=== PATIENT | female | born 1940 | race Caucasian/White ===

== ENCOUNTER 2022-01-05 11:46 | Observation (INO) | payer OTHER, MEDICAID, SELFPAY ==
--- NOTE | 2022-01-05 | DI.ECHO.S_ITS ---
[facility] +---------+ : : [address] : : : : [id number] : : : : Phone: [phone]+ Echocardiogram Report + + :Name: CHASE SPARKS Study Date: 01/06/2022 Height: 65 in : :[facility] ReadingLocation: Weight: 184 lb : : Gender: Female BSA: 1.9 m2 : :: 1940 Age: 81 yrs BP: 118/51 mmHg: :Reason For Study: POST CABG, PLEURAL EDEMA/EFFUSIONS, ASSESS : :EF : :Ordering Physician: JASON, : :ELIZABETH Perez D.O Performed By: Agnes Salinas : :Referring: ELIZABETH GOMEZ D.O : + + Interpretation Summary The left ventricle is normal in size and wall thickness. The ejection fraction is estimated to be 65-70%. Left ventricular wall motion is normal. E/E' suggest increased LV filling pressures. The right ventricle is normal size. Right ventricular systolic function is moderately reduced. The right ventricular systolic pressure is estimated to be at least 49 mmHg based on an estimated right atrial pressure of 3 mm Hg. The left atrium is moderately dilated. The right atrium is mildly dilated. There is mild to moderate mitral regurgitation. There is moderate tricuspid regurgitation. There is no other significant valvular heart disease. The aortic root is normal size. Overall, LVEF and RVSP have not changed. RV systolic function has decreased. Procedure: A two-dimensional transthoracic echocardiogram with color flow and Doppler was performed. The study quality was technically adequate. Comparison is made with the echocardiogram of 05/03/2020. The patient was in atrial flutter with heart rates between 42-56 bpm during the exam. Left Ventricle: The left ventricle is normal in size and wall thickness. The ejection fraction is estimated to be 65-70%. Left ventricular wall motion is normal. Diastolic parameters suggest probable elevated filling pressures. Right Ventricle: The right ventricle is normal size. Right ventricular systolic function is moderately reduced. Atria: The left atrium is moderately dilated. The right atrium is mildly dilated. There is no Doppler evidence for an interatrial shunt. Mitral Valve: The mitral valve is normal in structure but abnormal in function. There is mild mitral annular calcification. There is mild to moderate mitral regurgitation. Aortic Valve: The aortic valve is trileaflet. The aortic valve opens well. The aortic valve is mildly calcified. There is no aortic valve stenosis. No aortic regurgitation is present. Tricuspid Valve: Tricuspid leaflets are thickened. There is moderate tricuspid regurgitation. The right ventricular systolic pressure is estimated to be at least 49 mmHg based on an estimated right atrial pressure of 3 mm Hg. Pulmonic Valve: The pulmonic valve leaflets are thin and pliable; valve motion is normal. There is mild pulmonic regurgitation. There is no other significant valvular heart disease. Great Vessels: The aortic root is normal size. The ascending aorta could not be visualized. The IVC is of normal diameter and collapses greater than 50% with a sniff. This suggests a low right atrial pressure of 3 mm Hg. Pericardium/ Pleura There is no pericardial effusion. There is no pleural effusion. MMode/2D Measurements & Calculations LVIDd: 5.0 cm LVOT diam: 1.8 cm LVIDs: 2.8 cm Ao root diam: 2.6 cm FS: 44.1 % IVSd: 0.92 cm LVPWd: 1.1 cm LV lockett. diameter/BSA (cm/m^2): 2.6 LV sys. diameter/BSA (cm/m^2): 1.5 LA A2 area: 22.5 cm2 RA long axis: 6.0 cm LA A4 area: 27.5 cm2 RA area: 21.4 cm2 LA length (vol): 6.5 cm RA vol: 65.0 ml LA vol: 80.8 ml RA : 34.0 ml/m2 LA vol index: 42.3 ml/m2 IVC diam: 1.8 cm RVD1 (basal): 3.7 cm RVD2 (mid): 2.6 cm TAPSE: 1.1 cm Doppler Measurements & Calculations Ao V2 max: 135.3 cm/sec LVOT Max Satya: 77.1 cm/sec Ao V2 mean: 102.6 cm/sec LV V1 max P.4 mmHg Ao max P.3 mmHg LV V1 VTI: 17.4 cm Ao mean P.5 mmHg JAZMIN(I,D): 1.6 cm2 Ao V2 VTI: 27.7 cm JAZMIN(V,D): 1.5 cm2 sev ratio: 0.63 JAZMIN indexed to BSA (cm^2/m^2): 0.85 MV E max satya: 117.1 cm/sec TR max satya: 338.5 cm/sec MV A max satya: 1.2 cm/sec TR max P.8 mmHg MV E/A: 96.2 PA V2 max: 116.3 cm/sec Med Peak E' Satya: 3.9 cm/sec PA V2 mean: 84.8 cm/sec E/E' med: 30.2 PA mean P.1 mmHg Lat Peak E' Satya: 7.5 cm/sec PA pr(Accel): 35.3 mmHg E/E' lat: 15.7 E/e' average: 23.0 MV dec time: 0.24 sec MVA(VTI): 1.4 cm2 MV V2 mean: 69.7 cm/sec SV(LVOT): 44.9 ml MV mean P.5 mmHg MV V2 VTI: 31.0 cm Reading Physician:[id number] PM
[2022-01-05 11:45] VITALS: BP 144/73; PULSE 86; RESP 22; TEMP 36.6; O2SAT 100; BMI 31.7
[2022-01-05 12:25] VITALS: BP 141/53; PULSE 90; RESP 16; O2SAT 99
--- NOTE | 2022-01-05 12:25 | DI.RAD.S_ITS ---
PROCEDURE: XR KNEE RT 1TO2V INDICATIONS: Fall TECHNIQUE: 2 views of the knee were acquired. COMPARISON: None. FINDINGS: Bones: There is slight irregularity of the proximal fibula seen only on lateral view. Soft tissues: No joint effusion. No suspicious soft tissue calcifications. IMPRESSION: Slight irregularity of the proximal fibula cortex seen only on lateral view. Nondisplaced fracture cannot be excluded recommend correlation point tenderness. Follow-up imaging in 7-10 days is recommended. Dictated by: Allison Moe M.D. on 01/05/2022 at 13:08 Approved by: Allison Moe M.D. on 01/05/2022 at 13:09
--- NOTE | 2022-01-05 12:27 | ED_ITS ---
HPI - Weakness <Antonio Mantilla PA-C - Last Filed: 01/05/22 18:06> General Chief complaint: Weakness Stated complaint: weakness Time Seen by Provider: 01/05/22 12:03 Source: patient and EMS Mode of arrival: EMS History of Present Illness HPI Narrative: Patient is a 81-year-old female who presents to the emergency room with complaint of weakness for about a month. States she knows to make resistant been progressively getting worse. States that the weakness has actually caused her to fall yesterday. She said when she fell she hit her right knee. Admits to having heart concerns and has been seen product specialist Dr. Bonilla reviewed and Festus that. Also states she has been in discussions with Dr. Rodgers have pacemaker inserted. States her main provider is Dr. Acuña located in [place]. Station was also in the emergency room yesterday and would be general for the same issue. Main concern today is weakness and following up with her product specialist. Admits to history of atrial fibrillation. Denies chest pain shortness of breath fever chills or associated nausea or vomiting. Also Denies any other concerns. Related Data Home Medications Medication Instructions Recorded Confirmed atorvastatin 20 mg tablet (Lipitor) 40 mg PO HS ##0 10/24/11 01/05/22 metformin 1,000 mg 24 hr 1,000 mg PO BID ##0 10/24/11 01/05/22 tablet,extended release (Glumetza) amlodipine 10 mg tablet 10 mg PO DAILY 01/05/22 01/05/22 apixaban 2.5 mg tablet (Eliquis) 2.5 mg PO BID 01/05/22 01/05/22 furosemide 20 mg tablet 20 mg PO BID 01/05/22 01/05/22 insulin aspart U-100 100 unit/mL SUBCUT 01/05/22 (3 mL) subcutaneous pen (Novolog Flexpen U-100 Insulin aspart) isosorbide mononitrate 30 mg 30 mg PO DAILY 01/05/22 01/05/22 tablet,extended release 24 hr metoprolol succinate 25 mg 25 mg PO DAILY 01/05/22 01/05/22 tablet,extended release 24 hr pregabalin 50 mg capsule (Lyrica) 50 mg PO DAILY 01/05/22 01/05/22 primidone 50 mg tablet 50 mg 01/05/22 solifenacin 5 mg tablet 5 mg PO 01/05/22 Allergies Allergy/AdvReac Type Severity Reaction Status Date / Time No Known Drug Allergies Allergy Verified 01/05/22 18:26 Review of Systems <Antonio Mantilla PA-C - Last Filed: 01/05/22 18:06> Review of Systems Narrative: R.O.S.: General: Has complained of weakness for the last month. Cardiovascular: No chest pain or palpitations Respiratory: No S.O.B. HEENT: No congestion, ear pain, rhinorrhea, sore throat or tinnitus Gastrointestinal: No nausea or vomiting : No urinary concerns Skin: No rash or associated abnormalities Musculoskeletal: No pain in muscles or joints, no limitation of range of motion, no paresthesia or numbness. ?? Neurological: Awake, alert and in not apparent distress. No Headaches, changes in vision or other related neurological concerns. 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 General: normal appearance alert, and awake. Not in acute distress. ? Head: Normocephalic, no lesions. Chest: Lungs CTAB, no rales, rhonchi or wheezes. ?? Heart: RRR, no murmurs, rubs or gallops. Eyes: PERRLA, EOM's full, conjunctivae clear. ? Neuro: Physiological, no localizing findings, CN3-12 intact. ?? Musculoskeletal: Right knee has an abrasion at the mid lower patella area. The ureter minimal swelling no erythema noted on visual inspection. ? Skin: Normal, no rashes, no lesions noted. ?? PSYCHIATRIC: The mood is good, no blunted affect. Speech is clear. Thought process is linear, thought content is appropriate. The voice is without significant inflection. Gastrointestinal: Soft; NT; ND; Pos BS with Neg. rebound tenderness. No scars or major deformities noted on Visual Inspection. Initial Vital Signs Initial Vital Signs: Vital Signs Temperature 97.8 F 01/05/22 11:45 Pulse Rate 86 01/05/22 11:45 Respiratory Rate 22 01/05/22 11:45 Blood Pressure 144/73 H 01/05/22 11:45 Pulse Oximetry 100 01/05/22 11:45 Oxygen Delivery Method 01/05/22 11:45 <Chaparrita Henderson MD - Last Filed: 01/06/22 11:43> Initial Vital Signs Initial Vital Signs: Vital Signs Temperature 97.8 F 01/05/22 11:45 Pulse Rate 86 01/05/22 11:45 Respiratory Rate 22 01/05/22 11:45 Blood Pressure 144/73 H 01/05/22 11:45 Pulse Oximetry 100 01/05/22 11:45 Oxygen Delivery Method 01/05/22 11:45 Course <Antonio Mantilla PA-C - Last Filed: 01/05/22 18:06> Orders Ordered: ED Orders 01/06/22 07:12 BMP [Basic Metabolic Panel] DAILY CBC Auto Diff [Complete Blood Count AUTO DIFF] DAILY 01/06/22 11:40 Urinalysis and Microscopic Stat 01/07/22 05:00 BMP [Basic Metabolic Panel] DAILY CBC Auto Diff [Complete Blood Count AUTO DIFF] DAILY 01/08/22 05:00 BMP [Basic Metabolic Panel] DAILY CBC Auto Diff [Complete Blood Count AUTO DIFF] DAILY Acetaminophen (Acetaminophen 325 Mg Tablet) 650 mg PO Q6HR PRN PRN Reason: Fever/Mild Pain (1-3) Last Admin: 01/05/22 20:09 Dose: 650 mg Documented By: Apixaban (Apixaban 5 Mg Tablet) 2.5 mg PO BID [facility] Last Admin: 01/06/22 09:12 Dose: 2.5 mg Documented By: JACEK Atorvastatin Calcium (Atorvastatin 20 Mg Tablet) 20 mg PO BEDTIME [facility] Last Admin: 09/25/22 20:09 Dose: 20 mg Documented By: Chlorthalidone (Chlorthalidone 25 Mg Tablet) 25 mg PO DAILY [facility] Last Admin: 01/06/22 09:12 Dose: 25 mg Documented By: Admin: 01/05/22 20:06 Dose: 25 mg Documented By: Clopidogrel Bisulfate (Clopidogrel 75 Mg Tablet) 75 mg PO DAILY [facility] Last Admin: 01/06/22 09:12 Dose: 75 mg Documented By: JACEK Dextrose (Dextrose 50 % In Water 25 Gm/50 Ml Syringe) 25 gm IV PRN PRN PRN Reason: Hypoglycemia Furosemide (Furosemide 40 Mg/4 Ml Vial) 40 mg IV DAILY [facility] Last Admin: 01/06/22 09:12 Dose: 40 mg Documented By: Admin: 01/05/22 20:06 Dose: 40 mg Documented By: Polyethylene Glycol (Polyethylene Glycol 3350 17 Gm Powd.Pack) 17 gm PO DAILY PRN PRN Reason: Constipation Pregabalin (Pregabalin 50 Mg Capsule) 50 mg PO TID [facility] Last Admin: 01/06/22 09:12 Dose: 50 mg Documented By: Admin: 01/05/22 20:10 Dose: 50 mg Documented By: Sennosides (Sennosides 8.6 Mg Tablet) 8.6 mg PO BID PRN PRN Reason: Constipation Discontinued Medications Amlodipine Besylate (Amlodipine 5 Mg Tablet) 10 mg PO DAILY [facility] Heparin Sodium (Porcine) (Heparin 5,000 Unit/Ml Vial) 5,000 unit SUBCUT BID [facility] Last Admin: 01/05/22 20:10 Dose: 5,000 unit Documented By: Isosorbide Mononitrate (Isosorbide Mononitrate Er 30 Mg Tablet) 30 mg PO DAILY [facility] Metoprolol Tartrate (Metoprolol Ir 50 Mg Tablet) 50 mg PO BID [facility] Last Admin: 01/05/22 20:09 Dose: 50 mg Documented By: Vital Signs Vital signs: Vital Signs - 8 hr 01/05/22 11:45 Temperature 97.8 F Pulse Rate 86 Respiratory Rate 22 Blood Pressure 144/73 H Pulse Oximetry 100 Oxygen Delivery Method Room Air <Chaparrita Henderson MD - Last Filed: 01/06/22 11:43> Orders Ordered: ED Orders 01/06/22 07:12 BMP [Basic Metabolic Panel] DAILY CBC Auto Diff [Complete Blood Count AUTO DIFF] DAILY 01/06/22 11:40 Urinalysis and Microscopic Stat 01/07/22 05:00 BMP [Basic Metabolic Panel] DAILY CBC Auto Diff [Complete Blood Count AUTO DIFF] DAILY 01/08/22 05:00 BMP [Basic Metabolic Panel] DAILY CBC Auto Diff [Complete Blood Count AUTO DIFF] DAILY Acetaminophen (Acetaminophen 325 Mg Tablet) 650 mg PO Q6HR PRN PRN Reason: Fever/Mild Pain (1-3) Last Admin: 01/05/22 20:09 Dose: 650 mg Documented By: Apixaban (Apixaban 5 Mg Tablet) 2.5 mg PO BID [facility] Last Admin: 01/06/22 09:12 Dose: 2.5 mg Documented By: JACEK Atorvastatin Calcium (Atorvastatin 20 Mg Tablet) 20 mg PO BEDTIME [facility] Last Admin: 01/05/22 20:09 Dose: 20 mg Documented By: Chlorthalidone (Chlorthalidone 25 Mg Tablet) 25 mg PO DAILY [facility] Last Admin: 01/06/22 09:12 Dose: 25 mg Documented By: Admin: 01/05/22 20:06 Dose: 25 mg Documented By: Clopidogrel Bisulfate (Clopidogrel 75 Mg Tablet) 75 mg PO DAILY [facility] Last Admin: 01/06/22 09:12 Dose: 75 mg Documented By: JACEK Dextrose (Dextrose 50 % In Water 25 Gm/50 Ml Syringe) 25 gm IV PRN PRN PRN Reason: Hypoglycemia Furosemide (Furosemide 40 Mg/4 Ml Vial) 40 mg IV DAILY [facility] Last Admin: 01/06/22 09:12 Dose: 40 mg Documented By: Admin: 01/05/22 20:06 Dose: 40 mg Documented By: Polyethylene Glycol (Polyethylene Glycol 3350 17 Gm Powd.Pack) 17 gm PO DAILY PRN PRN Reason: Constipation Pregabalin (Pregabalin 50 Mg Capsule) 50 mg PO TID [facility] Last Admin: 01/06/22 09:12 Dose: 50 mg Documented By: Admin: 01/05/22 20:10 Dose: 50 mg Documented By: Sennosides (Sennosides 8.6 Mg Tablet) 8.6 mg PO BID PRN PRN Reason: Constipation Discontinued Medications Amlodipine Besylate (Amlodipine 5 Mg Tablet) 10 mg PO DAILY [facility] Heparin Sodium (Porcine) (Heparin 5,000 Unit/Ml Vial) 5,000 unit SUBCUT BID [facility] Last Admin: 01/05/22 20:10 Dose: 5,000 unit Documented By: Isosorbide Mononitrate (Isosorbide Mononitrate Er 30 Mg Tablet) 30 mg PO DAILY [facility] Metoprolol Tartrate (Metoprolol Ir 50 Mg Tablet) 50 mg PO BID [facility] Last Admin: 01/05/22 20:09 Dose: 50 mg Documented By: Vital Signs Vital signs: Vital Signs - 8 hr 01/05/22 11:45 Temperature 97.8 F Pulse Rate 86 Respiratory Rate 22 Blood Pressure 144/73 H Pulse Oximetry 100 Oxygen Delivery Method Room Air MDM - Weakness <Antonio Mantilla PA-C - Last Filed: 01/05/22 18:06> Lab Data Result diagrams: 01/06/22 07:12 01/06/22 07:12 Labs: Lab Results 01/05/22 01/05/22 01/05/22 Range/Units 13:15 13:15 13:15 WBC 10.6 (4.5-11.0) X10^3/uL RBC 3.31 L (4.0-5.2) X10^6/uL Hgb 10.3 L (12.0-16.0) g/dL Hct 29.6 L (36-46) % MCV 89.4 (80-100) fL MCH 31.1 (26-34) PG MCHC 34.8 (30-36) % RDW 15.8 H (11.6-14.8) % Plt Count 235 (150-400) X10^3/uL Neut % (Auto) 79.1 H (50-75) % Lymph % (Auto) 7.8 L (25-40) % [place] % (Auto) 9.8 (3-14) % Eos % (Auto) 2.7 (2-4) % Baso % (Auto) 0.6 (0-2) % Neut # (Auto) 8400 H (3344-3788) /uL Lymph # (Auto) 800 L (9691-4950) /uL [place] # (Auto) 1000 H (0-900) /uL Eos # (Auto) 300 (0-450) /uL Baso # (Auto) 100 (0-100) /uL Sodium 138 (137-145) mmol/L Potassium 4.0 (3.4-5.1) mmol/L Chloride 102 (98-107) mmol/L Carbon Dioxide 25 (22-32) mmol/L BUN 33 H (7-17) mg/dL Creatinine 1.59 H (0.52-1.04) mg/dL Estimated GFR 33 L (>60) mL/min BUN/Creatinine Ratio 20.8 (6-22) Glucose 71 L (80-110) mg/dL Hemoglobin A1c (4.0-6.0) % Calcium 9.3 (8.4-10.2) mg/dL Magnesium (1.6-2.3) mg/dL Total Bilirubin 1.3 (0.2-1.3) mg/dL AST 22 (14-36) IU/L ALT 12 (<35) IU/L Alkaline Phosphatase 64 (38-126) U/L Total Creatine Kinase 37 (30-135) U/L CK-MB (CK-2) TNP CK-MB (CK-2) Rel Index TNP Troponin I 0.017 (0.01-0.034) ng/mL NT-Pro-B Natriuret Pep (<450) pg/mL Total Protein 7.5 (6.3-8.2) g/dL Albumin 3.8 (3.5-5.0) g/dL Globulin 3.7 (1.7-4.1) g/dL Albumin/Globulin Ratio 1.0 (1.0-2.8) TSH (0.47-4.68) uIU/mL Free T4 (0.78-2.19) ng/dL SARS-CoV-2 (PCR) (Negative) 01/05/22 01/05/22 01/05/22 Range/Units 13:15 13:15 13:45 WBC (4.5-11.0) X10^3/uL RBC (4.0-5.2) X10^6/uL Hgb (12.0-16.0) g/dL Hct (36-46) % MCV (80-100) fL MCH (26-34) PG MCHC (30-36) % RDW (11.6-14.8) % Plt Count (150-400) X10^3/uL Neut % (Auto) (50-75) % Lymph % (Auto) (25-40) % [place] % (Auto) (3-14) % Eos % (Auto) (2-4) % Baso % (Auto) (0-2) % Neut # (Auto) (5609-4291) /uL Lymph # (Auto) (4941-0846) /uL [place] # (Auto) (0-900) /uL Eos # (Auto) (0-450) /uL Baso # (Auto) (0-100) /uL Sodium (137-145) mmol/L Potassium (3.4-5.1) mmol/L Chloride (98-107) mmol/L Carbon Dioxide (22-32) mmol/L BUN (7-17) mg/dL Creatinine (0.52-1.04) mg/dL Estimated GFR (>60) mL/min BUN/Creatinine Ratio (6-22) Glucose (80-110) mg/dL Hemoglobin A1c 6.9 H (4.0-6.0) % Calcium (8.4-10.2) mg/dL Magnesium 1.9 (1.6-2.3) mg/dL Total Bilirubin (0.2-1.3) mg/dL AST (14-36) IU/L ALT (<35) IU/L Alkaline Phosphatase (38-126) U/L Total Creatine Kinase (30-135) U/L CK-MB (CK-2) CK-MB (CK-2) Rel Index Troponin I (0.01-0.034) ng/mL NT-Pro-B Natriuret Pep (<450) pg/mL Total Protein (6.3-8.2) g/dL Albumin (3.5-5.0) g/dL Globulin (1.7-4.1) g/dL Albumin/Globulin Ratio (1.0-2.8) TSH 0.07 L (0.47-4.68) uIU/mL Free T4 1.67 (0.78-2.19) ng/dL SARS-CoV-2 (PCR) (Negative) 01/05/22 01/05/22 Range/Units 13:45 16:33 WBC (4.5-11.0) X10^3/uL RBC (4.0-5.2) X10^6/uL Hgb (12.0-16.0) g/dL Hct (36-46) % MCV (80-100) fL MCH (26-34) PG MCHC (30-36) % RDW (11.6-14.8) % Plt Count (150-400) X10^3/uL Neut % (Auto) (50-75) % Lymph % (Auto) (25-40) % [place] % (Auto) (3-14) % Eos % (Auto) (2-4) % Baso % (Auto) (0-2) % Neut # (Auto) (4828-6429) /uL Lymph # (Auto) (3199-0763) /uL [place] # (Auto) (0-900) /uL Eos # (Auto) (0-450) /uL Baso # (Auto) (0-100) /uL Sodium (137-145) mmol/L Potassium (3.4-5.1) mmol/L Chloride (98-107) mmol/L Carbon Dioxide (22-32) mmol/L BUN (7-17) mg/dL Creatinine (0.52-1.04) mg/dL Estimated GFR (>60) mL/min BUN/Creatinine Ratio (6-22) Glucose (80-110) mg/dL Hemoglobin A1c (4.0-6.0) % Calcium (8.4-10.2) mg/dL Magnesium (1.6-2.3) mg/dL Total Bilirubin (0.2-1.3) mg/dL AST (14-36) IU/L ALT (<35) IU/L Alkaline Phosphatase (38-126) U/L Total Creatine Kinase (30-135) U/L CK-MB (CK-2) CK-MB (CK-2) Rel Index Troponin I (0.01-0.034) ng/mL NT-Pro-B Natriuret Pep 6760 H (<450) pg/mL Total Protein (6.3-8.2) g/dL Albumin (3.5-5.0) g/dL Globulin (1.7-4.1) g/dL Albumin/Globulin Ratio (1.0-2.8) TSH (0.47-4.68) uIU/mL Free T4 (0.78-2.19) ng/dL SARS-CoV-2 (PCR) Negative (Negative) Point of Care Testing Glucose POC 59 Imaging Data Extremity x-ray #1: Radiologist Impression: PROCEDURE:? XR KNEE RT 1TO2V ? INDICATIONS:? Fall ? TECHNIQUE:? 2 views of the knee were acquired.? ? COMPARISON:? None. ? FINDINGS:? ? Bones:? There is slight irregularity of the proximal fibula seen only on lateral view. ? Soft tissues:? No joint effusion.? No suspicious soft tissue calcifications.? ? ? IMPRESSION:? Slight irregularity of the proximal fibula cortex seen only on lateral view. ?Nondisplaced fracture cannot be excluded recommend correlation point tenderness.? Follow-up imaging in 7-10 days is recommended.? ? ? Dictated by: Allison Moe M.D. on 01/05/2022 at 13:08 ? ? Approved by: Allison Moe M.D. on 01/05/2022 at 13:09 ? CT Right knee: Radiologist Impression: PROCEDURE:? CT KNEE RIGHT WITHOUT CON ? INDICATIONS:? Please evaluate for fx of proximal Fibula ? TECHNIQUE:? Noncontrast 1-1.5 mm axial sections acquired from the mid-patella to the proximal tibia, with coronal and sagittal reformats.? ? COMPARISON1:? [facility], CR, XR CHEST 1V, 01/05/2022, 13:58.? [facility], CR, XR KNEE RT 1TO2V, 01/05/2022, 12:38. ? FINDINGS:? Image quality:? Excellent.? ? Bones:? In this patient with this given history, scrutiny is given to the proximal fibula.? No fractures are seen at this site. No fractures are seen elsewhere.? No tibial plateau fracture is seen.? There is no dislocation.? The patella demonstrates normal alignment. No suspicious lytic or blastic lesions are seen.? Age-appropriate bony degenerative changes are seen.? ? Soft tissues:? There is a minimal joint effusion.? Mild soft tissue swelling is seen anteriorly and medially. Atherosclerotic calcification is noted.? ? ? IMPRESSION:? Negative for proximal fibular fracture. ? No fractures can be seen elsewhere. ? Mild degenerative changes, considered to be normal for age. ? Mild soft tissue swelling is seen anteriorly and medially. ? Dictated by: Haile Chua M.D. on 01/05/2022 at 14:40 ? ? Approved by: Haile Cuha M.D. on 01/05/2022 at 14:42? ECG Data Interpretation: Atrial fibrillation that aligns with patient's stated history. MDM Narrative Medical decision making narrative: Patient is a 11-year-old female who presents to the emergency room today with complaint weakness for about a month. Patient also admits cardiac related concerns seeing Cardiology Dr. Wilks removed and the wrist the results of this condition. Also scheduled to have a pacemaker inserted at some point in time. EKG was done and revealed atrial fibrillation and nonspecific intraventricular block possible into an age undetermined. X-ray was ordered to rule out fracture right knee. Labs were ordered to rule out urinary or bladder infections. X-ray right knee pain impression of slight irregularity of the proximal fibular cortex seen on lateral view only. Nondisplaced fracture cannot be ruled out recommend the right knee was ordered.c orrelation for point tenderness. Patient has point tenderness in that area and CT scan the right knee was ordered to rule out fibular fracture. CT scan ruled out a fracture right knee. Urine POC was ordered but nurse days patient continues to urinate in her diaper without giving her urine to the nurse. Other labs were not concerning for cardiac concerns or infectious concerns. Plan to discharge patient with encouragement for her to follow-up with her PCP and continue to follow the product specialist. <Chaparrita Henderson MD - Last Filed: 01/06/22 11:43> Lab Data Labs: Lab Results 01/05/22 01/05/22 01/05/22 Range/Units 13:15 13:15 13:15 WBC 10.6 (4.5-11.0) X10^3/uL RBC 3.31 L (4.0-5.2) X10^6/uL Hgb 10.3 L (12.0-16.0) g/dL Hct 29.6 L (36-46) % MCV 89.4 (80-100) fL MCH 31.1 (26-34) PG MCHC 34.8 (30-36) % RDW 15.8 H (11.6-14.8) % Plt Count 235 (150-400) X10^3/uL Neut % (Auto) 79.1 H (50-75) % Lymph % (Auto) 7.8 L (25-40) % [place] % (Auto) 9.8 (3-14) % Eos % (Auto) 2.7 (2-4) % Baso % (Auto) 0.6 (0-2) % Neut # (Auto) 8400 H (0790-8125) /uL Lymph # (Auto) 800 L (0591-3129) /uL [place] # (Auto) 1000 H (0-900) /uL Eos # (Auto) 300 (0-450) /uL Baso # (Auto) 100 (0-100) /uL Sodium 138 (137-145) mmol/L Potassium 4.0 (3.4-5.1) mmol/L Chloride 102 (98-107) mmol/L Carbon Dioxide 25 (22-32) mmol/L BUN 33 H (7-17) mg/dL Creatinine 1.59 H (0.52-1.04) mg/dL Estimated GFR 33 L (>60) mL/min BUN/Creatinine Ratio 20.8 (6-22) Glucose 71 L (80-110) mg/dL Hemoglobin A1c (4.0-6.0) % Calcium 9.3 (8.4-10.2) mg/dL Magnesium (1.6-2.3) mg/dL Total Bilirubin 1.3 (0.2-1.3) mg/dL AST 22 (14-36) IU/L ALT 12 (<35) IU/L Alkaline Phosphatase 64 (38-126) U/L Total Creatine Kinase 37 (30-135) U/L CK-MB (CK-2) TNP CK-MB (CK-2) Rel Index TNP Troponin I 0.017 (0.01-0.034) ng/mL NT-Pro-B Natriuret Pep (<450) pg/mL Total Protein 7.5 (6.3-8.2) g/dL Albumin 3.8 (3.5-5.0) g/dL Globulin 3.7 (1.7-4.1) g/dL Albumin/Globulin Ratio 1.0 (1.0-2.8) TSH (0.47-4.68) uIU/mL Free T4 (0.78-2.19) ng/dL SARS-CoV-2 (PCR) (Negative) 01/05/22 01/05/22 01/05/22 Range/Units 13:15 13:15 13:45 WBC (4.5-11.0) X10^3/uL RBC (4.0-5.2) X10^6/uL Hgb (12.0-16.0) g/dL Hct (36-46) % MCV (80-100) fL MCH (26-34) PG MCHC (30-36) % RDW (11.6-14.8) % Plt Count (150-400) X10^3/uL Neut % (Auto) (50-75) % Lymph % (Auto) (25-40) % [place] % (Auto) (3-14) % Eos % (Auto) (2-4) % Baso % (Auto) (0-2) % Neut # (Auto) (0110-9808) /uL Lymph # (Auto) (5858-1672) /uL [place] # (Auto) (0-900) /uL Eos # (Auto) (0-450) /uL Baso # (Auto) (0-100) /uL Sodium (137-145) mmol/L Potassium (3.4-5.1) mmol/L Chloride (98-107) mmol/L Carbon Dioxide (22-32) mmol/L BUN (7-17) mg/dL Creatinine (0.52-1.04) mg/dL Estimated GFR (>60) mL/min BUN/Creatinine Ratio (6-22) Glucose (80-110) mg/dL Hemoglobin A1c 6.9 H (4.0-6.0) % Calcium (8.4-10.2) mg/dL Magnesium 1.9 (1.6-2.3) mg/dL Total Bilirubin (0.2-1.3) mg/dL AST (14-36) IU/L ALT (<35) IU/L Alkaline Phosphatase (38-126) U/L Total Creatine Kinase (30-135) U/L CK-MB (CK-2) CK-MB (CK-2) Rel Index Troponin I (0.01-0.034) ng/mL NT-Pro-B Natriuret Pep (<450) pg/mL Total Protein (6.3-8.2) g/dL Albumin (3.5-5.0) g/dL Globulin (1.7-4.1) g/dL Albumin/Globulin Ratio (1.0-2.8) TSH 0.07 L (0.47-4.68) uIU/mL Free T4 1.67 (0.78-2.19) ng/dL SARS-CoV-2 (PCR) (Negative) 01/05/22 01/05/22 Range/Units 13:45 16:33 WBC (4.5-11.0) X10^3/uL RBC (4.0-5.2) X10^6/uL Hgb (12.0-16.0) g/dL Hct (36-46) % MCV (80-100) fL MCH (26-34) PG MCHC (30-36) % RDW (11.6-14.8) % Plt Count (150-400) X10^3/uL Neut % (Auto) (50-75) % Lymph % (Auto) (25-40) % [place] % (Auto) (3-14) % Eos % (Auto) (2-4) % Baso % (Auto) (0-2) % Neut # (Auto) (7369-6874) /uL Lymph # (Auto) (6720-0212) /uL [place] # (Auto) (0-900) /uL Eos # (Auto) (0-450) /uL Baso # (Auto) (0-100) /uL Sodium (137-145) mmol/L Potassium (3.4-5.1) mmol/L Chloride (98-107) mmol/L Carbon Dioxide (22-32) mmol/L BUN (7-17) mg/dL Creatinine (0.52-1.04) mg/dL Estimated GFR (>60) mL/min BUN/Creatinine Ratio (6-22) Glucose (80-110) mg/dL Hemoglobin A1c (4.0-6.0) % Calcium (8.4-10.2) mg/dL Magnesium (1.6-2.3) mg/dL Total Bilirubin (0.2-1.3) mg/dL AST (14-36) IU/L ALT (<35) IU/L Alkaline Phosphatase (38-126) U/L Total Creatine Kinase (30-135) U/L CK-MB (CK-2) CK-MB (CK-2) Rel Index Troponin I (0.01-0.034) ng/mL NT-Pro-B Natriuret Pep 6760 H (<450) pg/mL Total Protein (6.3-8.2) g/dL Albumin (3.5-5.0) g/dL Globulin (1.7-4.1) g/dL Albumin/Globulin Ratio (1.0-2.8) TSH (0.47-4.68) uIU/mL Free T4 (0.78-2.19) ng/dL SARS-CoV-2 (PCR) Negative (Negative) Point of Care Testing Glucose POC 59 Discharge Plan Departure Patient Disposition: Home Clinical Impression: Weakness, Atrial fibrillation <Chaparrita Henderson MD - Last Filed: 01/06/22 11:43> Cosign ED Attending Cosignature Attestation: I was immediately available in the department for consultation throughout this patient's visit. I agree with documentation as above. Chaparrita Henderson MD
--- NOTE | 2022-01-05 13:24 | DI.RAD.S_ITS ---
PROCEDURE: XR CHEST 1V INDICATIONS: Afib and weakness TECHNIQUE: One view of the chest was acquired. COMPARISON: [facility], CR, XR CHEST 1 VIEW, 10/24/2021, 11:53. [facility], CR, XR CHEST 2 VIEWS, 05/04/2020, 13:27. [facility], CR, CHEST 1 VIEW, 10/24/2011, 19:10. FINDINGS: Surgical changes and devices: Post CABG changes are seen. Postoperative change of the right humeral head is also seen. Lungs and pleura: Mild blunting of the left costophrenic angle can be seen. No pneumothorax is seen. No fransisco, focal infiltrates are seen. Minimal interstitial prominence can be seen Mediastinum: The cardiac contours are mildly to moderately large. The aorta demonstrates calcification and tortuosity. Bones and chest wall: No suspicious bony lesions. Age-appropriate bony degenerative changes are seen. Overlying soft tissues appear unremarkable. IMPRESSION: Cardiomegaly with minimal interstitial prominence and a small left-sided pleural effusion. Please correlate with patient presentation, physical examination findings, and laboratory values for congestive heart failure. Postoperative and degenerative changes are seen. Dictated by: Haile Chua M.D. on 01/05/2022 at 13:32 Approved by: Haile Chua M.D. on 01/05/2022 at 13:33
[2022-01-05 13:39] LABS: Add Manual Diff / Slide Review NO; Basophils Absolute Auto 100 /uL (0-100); Basophils Percent Auto 0.6 % (0-2); Eosinophils Absolute Auto 300 /uL (0-450); Eosinophils Percent Auto 2.7 % (2-4); Hematocrit 29.6 % (36-46); Hemoglobin 10.3 g/dL (12.0-16.0); Lymphocytes Absolute Auto 800 /uL (1100-4500); Lymphocytes Percent Auto 7.8 % (25-40); Mean Corpuscular HGB Conc 34.8 % (30-36); Mean Corpuscular Hemoglobin 31.1 PG (26-34); Mean Corpuscular Volume 89.4 fL (80-100); Monocytes Absolute Auto 1000 /uL (0-900); Monocytes Percent Auto 9.8 % (3-14); Neutrophils Absolute Auto 8400 /uL (1500-7000); Neutrophils Percent Auto 79.1 % (50-75); Platelet Count 235 X10^3/uL (150-400); Red Blood Cell Count 3.31 X10^6/uL (4.0-5.2); Red Cell Distribution Width 15.8 % (11.6-14.8); White Blood Cell Count 10.6 X10^3/uL (4.5-11.0)
[2022-01-05 13:44] LABS: Alanine Aminotransferase 12 IU/L (<35); Albumin 3.8 g/dL (3.5-5.0); Alkaline Phosphatase 64 U/L (38-126); Aspartate Aminotransferase 22 IU/L (14-36); BUN Creatinine Ratio 20.8 (6-22); Bilirubin Total 1.3 mg/dL (0.2-1.3); Blood Urea Nitrogen 33 mg/dL (7-17); Calcium 9.3 mg/dL (8.4-10.2); Carbon Dioxide 25 mmol/L (22-32); Chloride 102 mmol/L (98-107); Estimated Glomerular Filt Rate 33 mL/min (>60); Globulin 3.7 g/dL (1.7-4.1); Glucose 71 mg/dL (80-110); Sodium 138 mmol/L (137-145); Total Protein 7.5 g/dL (6.3-8.2)
[2022-01-05 13:45] LABS: HEMOLYSIS 62 (0-50)
[2022-01-05 13:56] LABS: Creatine Kinase 37 U/L (30-135)
--- NOTE | 2022-01-05 14:08 | PC.NURSE ---
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 concerned called ems, jacobo was on divert. pt states she does have an appt to see excellence consultant for PM placement.
[2022-01-05 14:09] LABS: Troponin I 0.017 ng/mL (0.01-0.034)
--- NOTE | 2022-01-05 14:29 | DI.CT.S_ITS ---
PROCEDURE: CT KNEE RIGHT WITHOUT CON INDICATIONS: Please evaluate for fx of proximal Fibula TECHNIQUE: Noncontrast 1-1.5 mm axial sections acquired from the mid-patella to the proximal tibia, with coronal and sagittal reformats. COMPARISON1: [facility], CR, XR CHEST 1V, 01/05/2022, 13:58. [facility], CR, XR KNEE RT 1TO2V, 01/05/2022, 12:38. FINDINGS: Image quality: Excellent. Bones: In this patient with this given history, scrutiny is given to the proximal fibula. No fractures are seen at this site. No fractures are seen elsewhere. No tibial plateau fracture is seen. There is no dislocation. The patella demonstrates normal alignment. No suspicious lytic or blastic lesions are seen. Age-appropriate bony degenerative changes are seen. Soft tissues: There is a minimal joint effusion. Mild soft tissue swelling is seen anteriorly and medially. Atherosclerotic calcification is noted. IMPRESSION: Negative for proximal fibular fracture. No fractures can be seen elsewhere. Mild degenerative changes, considered to be normal for age. Mild soft tissue swelling is seen anteriorly and medially. Dictated by: Haile Chua M.D. on 01/05/2022 at 14:40 Approved by: aHile Chua M.D. on 01/05/2022 at 14:42
[2022-01-05 16:00] VITALS: BP 136/58; PULSE 78; RESP 18; O2SAT 100
--- NOTE | 2022-01-05 16:26 | ED_ITS ---
HPI - Weakness General Chief complaint: Weakness Stated complaint: weakness Time Seen by Provider: 01/05/22 12:03 Source: patient and EMS Mode of arrival: EMS Related Data Home Medications Medication Instructions Recorded Confirmed atorvastatin 20 mg tablet (Lipitor) 20 mg PO HS ##0 10/24/11 chlorthalidone 25 mg tablet 25 mg PO QDAY ##0 10/24/11 clopidogrel 75 mg tablet (Plavix) 75 mg PO QDAY ##0 10/24/11 glipizide 10 mg tablet 10 mg PO BID ##0 10/24/11 metformin 1,000 mg 24 hr 1,000 mg PO BID ##0 10/24/11 tablet,extended release (Glumetza) metoprolol tartrate 50 mg tablet 50 mg PO BID ##0 10/24/11 pregabalin 50 mg capsule (Lyrica) 50 mg PO TID ##1 10/24/11 Patient History Surgical History (Updated 08/11/17 @ 06:00 by Conversion Provider) Status post surgery (09/19/13) Substance Use Type: does not use Exam Initial Vital Signs Initial Vital Signs: Vital Signs Temperature 97.8 F 01/05/22 11:45 Pulse Rate 86 01/05/22 11:45 Respiratory Rate 22 01/05/22 11:45 Blood Pressure 144/73 H 01/05/22 11:45 Pulse Oximetry 100 01/05/22 11:45 Oxygen Delivery Method 01/05/22 11:45 Course Orders Ordered: ED Orders 01/05/22 12:25 XR knee RT 1to2V Stat EKG-12 Lead Stat 01/05/22 13:15 CBC Auto Diff [Complete Blood Count AUTO DIFF] Stat CMP [Comprehensive Metabolic Panel] Stat cardiac panel [Troponin & CK Cardiac Panel] Stat 01/05/22 13:24 XR chest 1V Stat 01/05/22 14:29 Ct Knee right without con Stat 01/05/22 16:33 COVID19 -Nasal RAPID/Pre-Proc Stat 01/05/22 18:01 Urinalysis and Microscopic Stat Vital Signs Vital signs: Vital Signs - 8 hr 01/05/22 11:45 Temperature 97.8 F Pulse Rate 86 Respiratory Rate 22 Blood Pressure 144/73 H Pulse Oximetry 100 Oxygen Delivery Method Room Air MDM - Weakness Lab Data Result diagrams: 01/05/22 13:15 01/05/22 13:15 Labs: Lab Results 01/05/22 01/05/22 01/05/22 Range/Units 13:15 13:15 13:15 WBC 10.6 (4.5-11.0) X10^3/uL RBC 3.31 L (4.0-5.2) X10^6/uL Hgb 10.3 L (12.0-16.0) g/dL Hct 29.6 L (36-46) % MCV 89.4 (80-100) fL MCH 31.1 (26-34) PG MCHC 34.8 (30-36) % RDW 15.8 H (11.6-14.8) % Plt Count 235 (150-400) X10^3/uL Neut % (Auto) 79.1 H (50-75) % Lymph % (Auto) 7.8 L (25-40) % [place] % (Auto) 9.8 (3-14) % Eos % (Auto) 2.7 (2-4) % Baso % (Auto) 0.6 (0-2) % Neut # (Auto) 8400 H (8584-9556) /uL Lymph # (Auto) 800 L (6034-2034) /uL [place] # (Auto) 1000 H (0-900) /uL Eos # (Auto) 300 (0-450) /uL Baso # (Auto) 100 (0-100) /uL Sodium 138 (137-145) mmol/L Potassium 4.0 (3.4-5.1) mmol/L Chloride 102 (98-107) mmol/L Carbon Dioxide 25 (22-32) mmol/L BUN 33 H (7-17) mg/dL Creatinine 1.59 H (0.52-1.04) mg/dL Estimated GFR 33 L (>60) mL/min BUN/Creatinine Ratio 20.8 (6-22) Glucose 71 L (80-110) mg/dL Calcium 9.3 (8.4-10.2) mg/dL Total Bilirubin 1.3 (0.2-1.3) mg/dL AST 22 (14-36) IU/L ALT 12 (<35) IU/L Alkaline Phosphatase 64 (38-126) U/L Total Creatine Kinase 37 (30-135) U/L CK-MB (CK-2) TNP CK-MB (CK-2) Rel Index TNP Troponin I 0.017 (0.01-0.034) ng/mL Total Protein 7.5 (6.3-8.2) g/dL Albumin 3.8 (3.5-5.0) g/dL Globulin 3.7 (1.7-4.1) g/dL Albumin/Globulin Ratio 1.0 (1.0-2.8) SARS-CoV-2 (PCR) (Negative) 01/05/22 Range/Units 16:33 WBC (4.5-11.0) X10^3/uL RBC (4.0-5.2) X10^6/uL Hgb (12.0-16.0) g/dL Hct (36-46) % MCV (80-100) fL MCH (26-34) PG MCHC (30-36) % RDW (11.6-14.8) % Plt Count (150-400) X10^3/uL Neut % (Auto) (50-75) % Lymph % (Auto) (25-40) % [place] % (Auto) (3-14) % Eos % (Auto) (2-4) % Baso % (Auto) (0-2) % Neut # (Auto) (4020-3910) /uL Lymph # (Auto) (6015-1961) /uL [place] # (Auto) (0-900) /uL Eos # (Auto) (0-450) /uL Baso # (Auto) (0-100) /uL Sodium (137-145) mmol/L Potassium (3.4-5.1) mmol/L Chloride (98-107) mmol/L Carbon Dioxide (22-32) mmol/L BUN (7-17) mg/dL Creatinine (0.52-1.04) mg/dL Estimated GFR (>60) mL/min BUN/Creatinine Ratio (6-22) Glucose (80-110) mg/dL Calcium (8.4-10.2) mg/dL Total Bilirubin (0.2-1.3) mg/dL AST (14-36) IU/L ALT (<35) IU/L Alkaline Phosphatase (38-126) U/L Total Creatine Kinase (30-135) U/L CK-MB (CK-2) CK-MB (CK-2) Rel Index Troponin I (0.01-0.034) ng/mL Total Protein (6.3-8.2) g/dL Albumin (3.5-5.0) g/dL Globulin (1.7-4.1) g/dL Albumin/Globulin Ratio (1.0-2.8) SARS-CoV-2 (PCR) Negative (Negative) Discharge Plan Departure Patient Disposition: Home Clinical Impression: Weakness, Atrial fibrillation Instructions: DI for Atrial Fibrillation, DI for Muscle Weakness Prescriptions: No Action metformin [Glumetza] 1,000 MG tablet,ER iris.retention 24 hr 1,000 mg PO BID Qty: 0 clopidogrel [Plavix] 75 MG tablet 75 mg PO QDAY Qty: 0 pregabalin [Lyrica] 50 MG capsule 50 mg PO TID Qty: 1 glipizide 10 MG tablet 10 mg PO BID Qty: 0 metoprolol tartrate 50 MG tablet 50 mg PO BID Qty: 0 atorvastatin [Lipitor] 20 MG tablet 20 mg PO HS Qty: 0 chlorthalidone 25 MG tablet 25 mg PO QDAY Qty: 0 Referrals: Stephie Aguilar PA-C [Family Provider] -
[2022-01-05 17:04] LABS: COVID19 -Nasal RAPID Negative (Negative)
[2022-01-05 18:39] LABS: Magnesium 1.9 mg/dL (1.6-2.3)
[2022-01-05 18:41] LABS: Hemoglobin A1C% w Est Avg Glu 6.9 % (4.0-6.0)
[2022-01-05 18:51] LABS: NT-proBNP (BNP-Adult 18+) 6760 pg/mL (<450)
--- NOTE | 2022-01-05 19:01 | PC.NURSE ---
Wound pictures right buttock - Sacral dsg applied xx right knee left knee
[2022-01-05 19:12] LABS: TSH w/ Reflex to FT4 0.07 uIU/mL (0.47-4.68)
[2022-01-05 19:42] LABS: Free T4, Direct Thyroxine 1.67 ng/dL (0.78-2.19)
[2022-01-05] MEDS: FUROSEMIDE 40 MG/4 ML VIAL IV (20:06)
[2022-01-05] MEDS: CHLORTHALIDONE 25 MG TABLET PO (20:06)
[2022-01-05] MEDS: ACETAMINOPHEN 325 MG TABLET 650 MG PO (20:09)
[2022-01-05] MEDS: ATORVASTATIN 20 MG TABLET PO (20:09)
[2022-01-05] MEDS: METOPROLOL IR 50 MG TABLET PO (20:09)
[2022-01-05] MEDS: HEPARIN 5,000 UNIT/ML VIAL 5000 UNIT SUBCUT (20:10)
[2022-01-05] MEDS: PREGABALIN 50 MG CAPSULE PO (20:10)
[2022-01-05 21:37] VITALS: BP 118/51; PULSE 46; RESP 16; O2SAT 97
[2022-01-05 22:05] VITALS: PULSE 54; RESP 16; O2SAT 99
[2022-01-06] VITALS (8 sets, daily range): BP systolic 122–158; BP diastolic 42–65; PULSE 44–74; RESP 14–22; TEMP 36.1–36.8; O2SAT 96–98; BMI 31.7
--- NOTE | 2022-01-06 04:18 | PM.HP.1 ---
History of Present Illness History of Present Illness Date Patient Seen: 01/05/22 Time Patient Seen: 21:00 Chief complaint: weakness Narrative: Darlin Ward is a 81-year-old bed bound female with a medical history of diabetes, atrial fibrillation, chronic bradycardia, hypothyroidism with a history of partial thyroidectomy, CABG x5, heart stents on eliquis, whom is on home 02 for unknown reason, who presented to the emergency room with complaint of weakness for about a month progressively getting worse.? The patient reports repeated falls, the last being yesterday.? GLF impacting her right knee.? The patient denies any head injury or loss of consciousness from these falls. Admits to having heart concerns and has been seen electric stop installer Dr. Bonilla reviewed and has been in discussions with Dr. Rodgers to have a pacemaker inserted.? States her main provider is Dr. Acuña located in [place].? Patient is a poor historian and information may not be accurate. Patient denies chest pain shortness of breath, abd pain, fever, body aches, chills, nausea, vomiting, constipation, diarrhea, urinary issues, cough or upper respiratory symptoms, or recent illness, no recent changes in medication.? Also Denies any other concerns. Patient was hemodynamically stable upon admit temp 97.8?, BP 136/58, HR 78, R 18, O2 saturation 100% on 4 L nasal cannula, patient is on oxygen at home. Patient demonstrates mild anemia though we have no labs for comparison. 10.3/29.6, WBC normal noted mild left shift neutrophils 8400 mono 1000. Patient also demonstrates a versus possible CKD which is like BUN 33, creatinine 1.59, glucose of 71, GFR 33, A1c 6.9. BNP 6060, initial troponin 0.017, TSH is low 0.07. Chest x-ray demonstrated cardiomegaly a with minimal interstitial prominence and a small left-sided pleural effusion. Patient's right knee CT demonstrated mi soft tissue swelling seen anteriorly and medially. EKG demonstrated atrial fibrillation with a rate of 81 with nonspecific intraventricular block most likely right bundle-branch block which is consistent with previous EKG in chart which I personally reviewed. Patient admitted for weakness resulting in a ground level fall, right knee pain, bradycardia in AFib. Patient History Medical History (Updated 01/06/22 @ 04:53 by DENYS Wakefield) Bradycardia Chronic anticoagulation Hypothyroidism associated with surgical procedure Insulin dependent diabetes mellitus On home O2 Surgical History (Updated 01/06/22 @ 04:41 by DENYS Wakefield) History of coronary artery bypass graft x 6 History of partial thyroidectomy Status post surgery (09/19/13) Family & Social History Family History Mother Congestive heart failure Father Cancer Social History: household members none Prior Living Arrangements Apartment/Condo Safety & Behavioral: Feels Safe in Current Yes Environment Been Physically Hurt or No Threatened By a Person Tobacco & Substance use: Smoking Status Never smoker alcohol intake never Substance Use Type does not use Meds Home Medications and Allergies Home Medications Medication Instructions Recorded Confirmed Type atorvastatin 20 mg tablet (Lipitor) 40 mg PO HS ##0 10/24/11 01/05/22 History metformin 1,000 mg 24 hr 1,000 mg PO BID ##0 10/24/11 01/05/22 History tablet,extended release (Glumetza) amlodipine 10 mg tablet 10 mg PO DAILY 01/05/22 01/05/22 History apixaban 2.5 mg tablet (Eliquis) 2.5 mg PO BID 01/05/22 01/05/22 History furosemide 20 mg tablet 20 mg PO BID 01/05/22 01/05/22 History insulin aspart U-100 100 unit/mL SUBCUT 01/05/22 History (3 mL) subcutaneous pen (Novolog Flexpen U-100 Insulin aspart) isosorbide mononitrate 30 mg 30 mg PO DAILY 01/05/22 01/05/22 History tablet,extended release 24 hr metoprolol succinate 25 mg 25 mg PO DAILY 01/05/22 01/05/22 History tablet,extended release 24 hr pregabalin 50 mg capsule (Lyrica) 50 mg PO DAILY 01/05/22 01/05/22 History primidone 50 mg tablet 50 mg 01/05/22 History solifenacin 5 mg tablet 5 mg PO 01/05/22 History Allergies Allergy/AdvReac Type Severity Reaction Status Date / Time No Known Drug Allergies Allergy Verified 01/05/22 18:26 Review of Systems Review of Systems Narrative: All 12 point systems reviewed with the patient and are negative except otherwise documented. Exam Vital Signs (past 8 hours): - 01/05/22 21:37 01/05/22 22:05 01/06/22 00:45 Temperature 96.9 F L Pulse Rate 46 L 54 L 52 L Respiratory Rate 16 16 14 Blood Pressure 118/51 L 137/60 Pulse Oximetry 97 99 96 Oxygen Delivery Method Nasal Cannula Oxygen Flow Rate 2 2 2 Fraction of Inspired Oxygen 28 Fraction of Inspired Oxygen 28 SaO2/FiO2 Ratio 353 Oxygen Delivery Method Nasal Cannula Oxygen Flow Rate 2 Narrative Exam Narrative: General: Patient is a elderly pleasant mildly confused female in no distress at this time. HEENT: Normocephalic, atraumatic, extraocular muscles intact, oral pharynx is clear and mucous membranes are moist. Neck is supple and symmetric, trachea is midline, no adenopathy, no thyroid enlargement, nontender, no masses palpated. Negative for JVD Chest: Normal AP diameter and contour without kyphoscoliosis, no nasal flaring, retractions, tachypneic, mildly labored breathing. Lungs: Auscultation of all lung brantley are clear without adventitious sounds, wheezes, rhonchi, or rales. Cardio: Bradycardic irregular rate and rhythm without murmur, rubs, or gallops, no carotid bruit, no cardiac pulsations present. Abdomen: Soft nontender, negative for organomegaly, or masses. Bowel sounds are present in all 4 quadrants without guarding or rebound, no CVA tenderness. Musculoskeletal: Right knee has an abrasion at the mid lower patella area. The ureter minimal swelling no erythema noted on visual inspection. no deformity, crepitus, effusions, cyanosis, or clubbing present. Positive bilateral +2 lower extremity nonpitting edema. Full range of motion intact radial and pedal pulses are normal. Skin: Warm dry and intact. see right knee above. Neuro: Alert and orientated x3, sensation to touch intact, no gross deficits noted of cranial nerves. Psych: Patient has a well-kept appearance, appropriate affect, mildly confused, thought context mental status and judgment are appropriate for age 81. Objective Labs Result Diagrams: 01/05/22 13:15 01/05/22 13:15 Labs: Laboratory Results - last 24 hr 01/05/22 01/05/22 01/05/22 13:15 13:15 13:15 WBC 10.6 RBC 3.31 L Hgb 10.3 L Hct 29.6 L MCV 89.4 MCH 31.1 MCHC 34.8 RDW 15.8 H Plt Count 235 Neut % (Auto) 79.1 H Lymph % (Auto) 7.8 L [place] % (Auto) 9.8 Eos % (Auto) 2.7 Baso % (Auto) 0.6 Neut # (Auto) 8400 H Lymph # (Auto) 800 L [place] # (Auto) 1000 H Eos # (Auto) 300 Baso # (Auto) 100 Sodium 138 Potassium 4.0 Chloride 102 Carbon Dioxide 25 BUN 33 H Creatinine 1.59 H Estimated GFR 33 L BUN/Creatinine Ratio 20.8 Glucose 71 L Hemoglobin A1c Calcium 9.3 Magnesium Total Bilirubin 1.3 AST 22 ALT 12 Alkaline Phosphatase 64 Total Creatine Kinase 37 CK-MB (CK-2) TNP CK-MB (CK-2) Rel Index TNP Troponin I 0.017 NT-Pro-B Natriuret Pep Total Protein 7.5 Albumin 3.8 Globulin 3.7 Albumin/Globulin Ratio 1.0 TSH Free T4 SARS-CoV-2 (PCR) 01/05/22 01/05/22 01/05/22 13:15 13:15 13:45 WBC RBC Hgb Hct MCV MCH MCHC RDW Plt Count Neut % (Auto) Lymph % (Auto) [place] % (Auto) Eos % (Auto) Baso % (Auto) Neut # (Auto) Lymph # (Auto) [place] # (Auto) Eos # (Auto) Baso # (Auto) Sodium Potassium Chloride Carbon Dioxide BUN Creatinine Estimated GFR BUN/Creatinine Ratio Glucose Hemoglobin A1c 6.9 H Calcium Magnesium 1.9 Total Bilirubin AST ALT Alkaline Phosphatase Total Creatine Kinase CK-MB (CK-2) CK-MB (CK-2) Rel Index Troponin I NT-Pro-B Natriuret Pep Total Protein Albumin Globulin Albumin/Globulin Ratio TSH 0.07 L Free T4 1.67 SARS-CoV-2 (PCR) 01/05/22 01/05/22 13:45 16:33 WBC RBC Hgb Hct MCV MCH MCHC RDW Plt Count Neut % (Auto) Lymph % (Auto) [place] % (Auto) Eos % (Auto) Baso % (Auto) Neut # (Auto) Lymph # (Auto) [place] # (Auto) Eos # (Auto) Baso # (Auto) Sodium Potassium Chloride Carbon Dioxide BUN Creatinine Estimated GFR BUN/Creatinine Ratio Glucose Hemoglobin A1c Calcium Magnesium Total Bilirubin AST ALT Alkaline Phosphatase Total Creatine Kinase CK-MB (CK-2) CK-MB (CK-2) Rel Index Troponin I NT-Pro-B Natriuret Pep 6760 H Total Protein Albumin Globulin Albumin/Globulin Ratio TSH Free T4 SARS-CoV-2 (PCR) Negative Assessment & Plan Assessment & Plan narrative: Darlin Ward is a 81-year-old female with a medical history of diabetes, atrial fibrillation, chronic bradycardia, hypothyroidism with a history of partial thyroidectomy, CABG x5, heart stents on eliquis, whom is on home 02 for unknown reason, who presented to the emergency room with complaint of weakness for about a month progressively getting worse, resulting in multiple ground level falls causing right knee pain, though pt is reported to be bed bound, she also presents with atrial fibrillation with bradycardic rates between 39-50. 1. Weakness(deconditioning) chronic, resulting in ground level fall, right knee pain, acute, present on admission -patient is reported to be bed bound-unknown duration? -Patient needs SNF placement -right knee CT demonstrated only mild soft tissues swelling seen anteriorly and medially. -PT/OT evaluation -gait stability evaluation -Patient likely needs -the deconditioning weakness I suspect is chronic, exacerbated the patient's bradycardic atrial fibrillation, inactivity, and possible hypoglycemia. 2. Atrial fibrillation, on chronic anticoagulation, intermittent bradycardia, acute on chronic, present on admission -ED consulted Cardiology -will likely need cardiology consult regarding bradycardia if we are unable to stabalize- transfer for pacemaker placement. -unclear who patient's electric stop installer is-S have requested day shift RN to verify medications dosages electric stop installer and request records to provide to Dr. Mejia tomorrow. -echo ordered for tomorrow -patient has bilateral lower extremity edema, and BNP of 6760-likely has congestive heart failure- Echo for confirmation. Lasix 40mg IV BID -monitor on tele -ortho stats Q4 Hrs while awake -Hold metoprolol, amolodipine, isosorbide mononitrate- due to Bradycardia. -continue Eliquis 3. Hypothyroidism secondary to partial thyroidectomy, acute on chronic, present on admission -TSH 0.07 -ordered thyroid ultrasound -unable to verify medication or dose- due to pt poor historian, or if she is taking any medication at this time. -Day RN to verify 4. Diabetes type 2, insulin dependent, chronic, present on admission -patient presented with a blood sugar of 71, and A1c of 6.9 -will hold diabetic medications-an A1c of 7-7.5 is appropriate in a 81-year-old she likely no longer needs to continue any diabetic medications, but should follow-up with PCP for repeat A1c in 3 months for further evaluation. -admitted under diabetic protocols and will monitor blood sugars a.c. HS 5. BILLY, verses CKD, acute, present on admission -suspect that this is actually just CKD, but no labs for comparison -BUN 33, creatinine 1.59, glucose 71, GFR 33 -will monitor renal function. -no signs of infectious process 6. Anemia, mild, acute, present on admission -again suspect this is possible anemia -RBC 3.31, H&H 10.3/29.6 -will monitor H&H, and for signs and symptoms of bleeding 7. Cognitive impairment, acute versus chronic, present on admission -does not appear to be encephalopathic, suspect this is normal appropriate memory loss with age. -monitor for acute cognitive changes Code status:DNR Surrogate decision maker: Monet Perdomo Sister JUSTO PCR:Negative DVT/VTE prophylaxis:Pt on Eliquis & SCD's Disposition: Patient admitted for observation for echo, thyroid ultrasound, PT/OT/SNF evaluation, expected length of stay less than 2 midnights I have utilized all available immediate resources to obtain, update, or review the patient's current medications. Patient is a poor historian and unable to clarify medications or medical history, RN will verify tomorrow. I confirmed that the patient's advanced care plan is present, Code status is documented and/or surrogate decision maker is listed in the patient's medical record. Time Spent With Patient Critical Care time: I spent a total of [] minutes of critical care time on this patient's care today; this time is exclusive of procedural time. Scores GCS Debbie coma scale eye opening: Spontaneous Debbie coma scale verbal response: Confused Debbie coma scale motor response: Obey commands [place] coma scale total score: 14 Quality VTE Deep Vein Thrombosis/Pulmonary Embolism Present on Admission: No
[2022-01-06 07:42] LABS: Add Manual Diff / Slide Review NO; Basophils Absolute Auto 0 /uL (0-100); Basophils Percent Auto 0.3 % (0-2); Eosinophils Absolute Auto 200 /uL (0-450); Eosinophils Percent Auto 1.3 % (2-4); Hematocrit 29.9 % (36-46); Hemoglobin 10.3 g/dL (12.0-16.0); Lymphocytes Absolute Auto 400 /uL (1100-4500); Lymphocytes Percent Auto 3.5 % (25-40); Mean Corpuscular HGB Conc 34.5 % (30-36); Mean Corpuscular Hemoglobin 30.5 PG (26-34); Mean Corpuscular Volume 88.5 fL (80-100); Monocytes Absolute Auto 1000 /uL (0-900); Monocytes Percent Auto 8.2 % (3-14); Neutrophils Absolute Auto 10600 /uL (1500-7000); Neutrophils Percent Auto 86.7 % (50-75); Platelet Count 258 X10^3/uL (150-400); Red Blood Cell Count 3.38 X10^6/uL (4.0-5.2); Red Cell Distribution Width 15.6 % (11.6-14.8); White Blood Cell Count 12.3 X10^3/uL (4.5-11.0)
[2022-01-06 07:58] LABS: BUN Creatinine Ratio 16.6 (6-22); Blood Urea Nitrogen 27 mg/dL (7-17); Calcium 9.3 mg/dL (8.4-10.2); Carbon Dioxide 28 mmol/L (22-32); Chloride 99 mmol/L (98-107); Estimated Glomerular Filt Rate 32 mL/min (>60); Glucose 125 mg/dL (80-110); HEMOLYSIS < 15 (0-50); Potassium 3.6 mmol/L (3.4-5.1); Sodium 138 mmol/L (137-145)
--- NOTE | 2022-01-06 09:07 | DIET.CONS2 ---
Dietary Inpatient Consultation Note Admission Date: 01/05/2022 18:09 RD consulted for MNA 10, pt at risk for malnutrition. RD attempted bedside interview with pt. Pt sitting up in bed chewing on breakfast but chicken sausage and oranges both appear to be chewed on and spit out, pt states she is having difficult time eating them but also states breakfast tastes good. 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 RD spoke c Care Management to collaborate on ways to glean more about pts home status. RD to f/u with [facility] to identify physical signs of malnutrition. Diet: 01/05/22 Dinner Heart Healthy Diet Diet Modifications: Electronically Signed by: Macey Noriega 01/06/22 09:07 Clinical Dietitian [address] [id number]
[2022-01-06] MEDS: APIXABAN 5 MG TABLET 2.5 MG PO ×2 (09:12→21:57)
[2022-01-06] MEDS: CLOPIDOGREL 75 MG TABLET PO (09:12)
[2022-01-06] MEDS: CHLORTHALIDONE 25 MG TABLET PO (09:12)
[2022-01-06] MEDS: PREGABALIN 50 MG CAPSULE PO ×3 (09:12→21:57)
[2022-01-06] MEDS: FUROSEMIDE 40 MG/4 ML VIAL IV (09:12)
--- NOTE | 2022-01-06 10:22 | PC.RNWOUND ---
Patient resting in bed, turns to left side with assist. Sacral dressing gently pulled back to reveal a 2 x 1.5 x 0.05cm Stage 2 pressure injury to Right buttock. This is a partial-thickness wound with sacral dressing covering for protection. Patient is incontinent with purewick in use, turn q2 schedule. Patient is turned to left side using 30 degree tilt to offload right buttock, reports comfort.
--- NOTE | 2022-01-06 11:28 | PT.IIE ---
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 Mobility and Gait Pt uses a 4WW for limited household mobility and for trips to the doctor's office. She states she has been falling frequently. Activities of Daily Living and IADL's Pt has a ALEENA caregiver 4-5 hours per day during the week and one hour per day on weekends. Caregiver is assisting with bathing tasks. Per OT, pt states she was driving herself until recently . Prior Functional Level (Other details) Pt recently had a monitoring tech from [facility]. She is persistently bradycardic and is being considered for a pacemaker. Social History Household Members none Living Arrangements Apartment/Condo Number of Stairs To Enter/Railing? Pt lives in a third floor apartment with elevator access . Home Environment Standard Height Toilet,Tub/ Shower Home Equipment Bedside Commode,Tub Transfer Bench,Hand Held Shower,Lift Recliner,Grab Bars Near Toilet ,Grab Bars In Shower Additional Social History Comment Pt lives alone in [place]. She has a sister who lives in [place] and provides occasional assist. Pt's caregiver has been sick recently and unable to provide regular hours. M2 PT-IP Current Condition Start: 01/06/22 09:04 Freq: NEEDED Status: Active Protocol: Document 01/06/22 11:28 AW (Rec: 01/06/22 13:23 AW [id number]) Physical Therapy Current Condition Current Condition Evaluation Date 01/06/22 Treatment Diagnosis weakness, falls Onset Date 12/31/21 M3 PT-IP Subjective Start: 01/06/22 09:04 Freq: NEEDED Status: Active Protocol: Document 01/06/22 11:28 AW (Rec: 01/06/22 13:23 AW [id number]) Subjective Physical Therapy Visit Type Type Initial Evaluation Visit Start Time 10:34 Visit Stop Time 11:28 Total Visit Minutes 54 Physical Therapy Visit Comments Patient Comments I will fall if I try to stand . Patient Goals Improve strength and stability Therapy Pain Assessment Pain When Pain Assessed During Mobility Pain Present Pain Present Pain Reported Location low back Intensity 3 Scale Used Numeric (0 - 10) Pain Behaviors Restlessness Pain Management Techniques Modification of Treatment,Re- positioning M4 PT-IP Mobility and Gait Start: 01/06/22 09:04 Freq: NEEDED Status: Active Protocol: Document 01/06/22 11:28 AW (Rec: 01/06/22 13:23 AW [id number]) PT-Bed Mobility Assessment Supine to Sit Supine to Sit Maximum Assistance,1 Person Assistance,Head of Bed Elevated,Bedrails Scooting Scooting to Edge of Bed Maximum Assistance PT-Transfer Assessment Sit to and From Stand Sit to and from Stand Maximum Assistance,2 Person Assistance,Use of Upper Extremities Equipment Transfer Assistive Device Gait Belt Orthotic/Prosthetic Devices or Brace: No Transfers Transfer Destination Chair Transfer Technique Squat Pivot Transfer Ability Level of Assist Maximum Assistance,Total Assistance,2 Person Assistance ,Use of Upper Extremities Comments Mobility Comments Pt was lying in bed as PT arrived. Supine BP was 122/50 HR 60. Pt was confused and drowsy, needed frequent cues to attend to task. She needed HOB elevated and max A to sit up EOB. Sitting BP was 130/52 HR 68. In sitting, she had poor trunk control with evidence of myoclonic jerk/ spasm occasionally which was affecting her balance. She had spasm in her trunk and in all extremities. Mod A to sit EOB due to spasms. She attempted to stand with max A x 2 but was unable to maintain standing safely with FWW as her arms or legs would spasm and pt would lose control and need assist to safely sit on the bed. Pt did express interest in sitting up in the chair (which was set up with waffle cushion and sergio sling ). With max/total A x 2, pt completed squat pivot to the chair. Total assist to scoot back in the chair. Pt was left in reclined position with nursing attending. Gait Assessment Comments Gait Comments Unsafe for gait at this time. Stair Climbing Assessment Comments Stair Climbing Comments No stairs at home. PT-Balance Assessment Sitting Balance and Reactions Static Sitting Balance Ability Poor Dynamic Sitting Balance Ability Poor Standing Balance and Reactions Static Standing Balance Ability Poor Dynamic Standing Balance Ability Poor Device Used FWW M5 PT-IP Objective Assessments Start: 01/06/22 09:04 Freq: NEEDED Status: Active Protocol: Document 01/06/22 11:28 AW (Rec: 01/06/22 13:23 AW [id number]) Orientation Orientation/Cognition Level of Alertness Confusional State Orientation Name,Month,Place,Situation Memory Description Short Term Impaired Gross Range of Motion Upper Extremity ROM Assessment Bilaterally Impaired Impairments ~110 degrees elevation bilaterally. Painful IR limiting behind the back movement. Lower Extremity ROM Assessment Bilaterally Impaired Impairments DF not to neutral. Strength Lower Extremity Strength Assessment Bilaterally Impaired Hip 3-/5 Knee 3/5 Ankle 3-/5 Sensation Assessment Comments Sensation Comments Pt denies sensation disturbance. Muscle Tone Muscle Tone WNL No Comments Muscle Tone Comments Pt has truncal, BUE, and BLE spasm or myoclonus which are affecting her seated and standing balance. M6 PT-IP Treatment Start: 01/06/22 09:04 Freq: NEEDED Status: Active Protocol: Document 01/06/22 11:28 AW (Rec: 01/06/22 13:23 AW [id number]) Physical Therapy Treatment Education Education Provided Safety M7 PT-IP Assessment and Plan Start: 01/06/22 09:04 Freq: NEEDED Status: Active Protocol: Document 01/06/22 11:28 AW (Rec: 01/06/22 13:23 AW [id number]) PT Summary Assessment and Plan Potential Rehabilitation Potential Fair Status of Condition at Evaluation Unstable Summary Impairments Pain,ROM,Strength,Balance, Sensation,Tone,Cognition,Bed Mobility,Transfers,Gait, Activity Tolerance Assessment Summary Leah is a 81 yo woman who lives alone with caregiver support ~20 hours per week. Per CM notes, pt is able to mobilize with 4WW on a limited basis at her baseline. On assessment today, pt is quite confused, disoriented, and weak. She has spasms in her trunk and extremities which are affecting her balance. She needs support to sit up at the edge of the bed and needs max/total assist x 2 for squat pivot transfer to the chair. Given pt's debility compared with baseline function and recent falls, PT recommends SNF rehab to improve pt's strength and mobility independence. Goals Bed Mobility Goal Standby Assistance Transfer Goal Minimal Assistance,Front Wheeled Walker Gait Goal Minimal Assistance,Front Wheel Walker Gait Distance 25 Other Goals - Improve gait distance to 75 feet with FWW Days to Meet Goals 10 Frequency of Treatment Frequency Of Treatment Once a Day Treatment Plan Physical Therapy Treatment Plan Bed Mobility Training,Transfer Training,Gait Training, Therapeutic Exercise,Balance Retraining,Discharge Planning, Hot or Cold Pack,Neuromuscular Re-ed,Coordination Retraining Precautions Other Precautions falls Recommendations To Nursing Amount of Assist Needed Mechanical Lift Discharge Recommendations PT Discharge Recommendations SNF Rehab Transportation Needs at Discharge Wheelchair/Cabulance
--- NOTE | 2022-01-06 11:41 | CM.DANOTE ---
Addendum entered by Aimee Mccormack, SECONDS INSPECTOR 01/06/22 15:29: ADD: Return call from [facility] confirming they can accept pt under COVID waiver and SW faxed updated notes from PT/OT/RN to review and confirmed they could accept tomorrow if needed as pt OBS status. SW met bedside with pt and explained role and pt seemed to be alert and oriented x3 during discussion. SW discussed recommendation of SNF and pt acknowledges that she is below baseline and SNF needed. SW updated that [facility] can accept and pt is agreeable. Pt states she has her cell phone and plans to call her sister now with update. Plan: SW to follow for plan of d/c to [facility] tomorrow 01/07/22 if medically stable. BF Addendum entered by Aimeecoretta Mccormack, SECONDS INSPECTOR 01/06/22 11:57: ADD: ALEENA IRWIN also mentioned that likely what led to pt getting admitted is her ALEENA CG tested positive for COVID last week and was out for at least 5 days and just started back to work with pt on Thu or Sat right before admission. SW faxed H&P to ALEENA Manzano to review. BF Original Note: Patient is a 81 yo female who was admitted on 01/05/22 for Weakness. Pt has [facility] and [facility] for insurance and her PCP is a Conchita Norman. EMR was reviewed. Per MD, pt with complex medical hx and has home O2 and admitted for GLF, knee pain, and increased weakness and confusion and pt currently a poor historian. Per Clinical Care Leader, attempted to meet bedside with pt to discuss her food intake/nutrition needs and unable to gather accurate information at this time and therefore bedside assessment with pt likely not helpful this morning and SW will attempt later today. PT/OT ordered and pending. ELIJAH called ALEENA office and confirmed that pt lives in an apt alone in [place] and assigned ALEENA IRWIN is Natacha Guzman [phone]. Natacha confirms pt was recently reassessed for request of increased hours but pt does not qualify and has 115 hrs a month and has a CG though agency [facility] on [address] and CG goes 7 days a week to check on pt so during the week there from about [id number] and weekends more like an hour or so. Per Natacha, pt's sister/DPGIOVANNI Healy is local and involved and visits pt regularly but is older than the pt and cannot provide physical assist. Pt is NOT bed bound at baseline but requires some limited assist with mobility, assist with bathing, meal prep but pt does not need feeding assist. Pt has been adamant that she remain at home although sister would prefer pt be placed at a LTC facility. Per PT, pt below baseline and currently only able to squat pivot to chair and recommending sergio for nursing staff until pt is stronger and more oriented. Recommending SNF and feels pt would be skillable. Pt currently OBS Status and only local SNF's accepting COVID waiver are [facility], [facility], [facility], [facility]. Referrals sent to those SNF's for review. PASRR done. SW printed COVID vax status from [facility] and pt fully vaccinated with last booster in mid August 2021 this year. Plan: SW to follow for bedside assessment with pt when more medically appropriate to better discuss likely need for SNF. SW to follow for SNF review to determine if they can accept. CUAUHTEMOC Meng Discharge Planning/Care Management CM Discharge Assessment Start: 01/06/22 11:32 Freq: Status: Active Protocol: Document 01/06/22 11:33 BF (Rec: 01/06/22 11:41 BF [id number]) Discharge Planning Assessment Assigned Wood And Hardware Outfitter CUAUHTEMOC Yu/Assigned Designee Name Sister Monet Contact Information [phone] Advance Directives? Yes Advance Directives on File No History Provided By Patient,Family Member,Medical Record Has Patient been admitted in last 30 No days? Prior Living Arrangements Apartment/Condo Household Members none Comment Has ALEENA CG at baseline Type of transporation used prior to Relies on Others admit Independent with ADL's No Is patient alert and oriented? No: mild cog impairment at baseline Needs Assistance With Bathing,Meal Prep,Managing Medications,Home Chores / Shopping Caregiver for Another No Community Services used prior to Physical Therapy,Occupational admission: Therapy,Home Health Nurse DME Already Rented / Owned FWW / Walker Patient/Family Preference Residential Facility Barriers to Discharge No Discharge Plan Residential Facility Transportation Arrangement Likely facility van if SNF vs ALEENA CG or sister if home Referrals Initiated Residential If patient plan is SNF: Has PASSR been Yes completed? Medicare Choice List Provided Yes SNF/HH Preference Any SNF that can accept COVID waiver as pt OBS Has Agency SNF been contacted Yes Whiteboard Updated in Patient Room with Yes name and ext. # of Wood And Hardware Outfitter Review Status In Process Please Provide Date Initial DC 01/06/22 Assessment Was Performed Next Review Type Continued Stay Review
--- NOTE | 2022-01-06 12:44 | DIET.CONS ---
Addendum entered by Macey Noriega 01/06/22 13:03: adjusting pts diet to Easy Chew as pt was spitting out sausage casing and orange membrane at breakfast. Original Note: Dietary Consultation Note Admission Date: 01/05/2022 18:09 Assessment: 81y F admitted with weakness referred to nutrition for poor nutrition, decreased mobility, and wounds. Rd met c pt at bedside, pt unable to provide meaningful hx at this time besides having caregiver who comes to help her with meals daily including 1h each weekend. RD confirmed c CM pt has caregiver 9am-1pm M-F and 1h on weekends but that caregiver was out with covid x5d during which pt had dramatic decline including development of stage 2 pressure ulcer on gluteal region, needing max assist and sergio for mobility and confusion. Pts baseline weight unknown at this time. Ht: 162.56 cm Wt: 83.915 kg BMI: 31.7 UBW: unknown Last BM: () MNA: 10 Deep Score: 15 Diet: 01/05/22 Dinner Heart Healthy Diet Diet Modifications: Nutrition Percent Meal Consumed 25% 01/06/22 09:32 Labs: RBC 3.38 X10^6/uL (4.0-5.2) L 01/06/22 07:12 Hgb 10.3 g/dL (12.0-16.0) L 01/06/22 07:12 Hct 29.9 % (36-46) L 01/06/22 07:12 Creatinine 1.63 mg/dL (0.52-1.04) H 01/06/22 07:12 Hemoglobin A1c 6.9 % (4.0-6.0) H 01/05/22 13:45 NT-Pro-B Natriuret Pep 6760 pg/mL (<450) H 01/05/22 13:45 Nutrition Diagnosis: increased nutrient needs for healing r/t inadequate intake x5d aeb pt with stage 2 pressure wound on gluteal region, pts caregiver had covid so no support at home x5d. Interventions: 1. Sending ONS Ensure Max once daily to support protein and micronutrient needs. 2. Watching renal fxn as creatinine is elevated to 1.63. Monitoring/Evaluations: POs, ONS tolerance Electronically Signed by: Macey Noriega 01/06/22 12:44 Clinical Dietitian [address] [place] [address]
[2022-01-06 13:40] LABS: Appearance Urine UA SL CLOUDY; Bilirubin Urine UA NEGATIVE (NEGATIVE); Color Urine UA YELLOW; Glucose Urine UA NEGATIVE (Negative); Ketones Urine UA NEGATIVE (NEGATIVE); Leukocyte Esterase Urine UA 2+ (NEGATIVE); Nitrite Urine UA NEGATIVE (Negative); Occult Blood Urine UA NEGATIVE (Negative); Protein Urine UA NEGATIVE (Negative); Specific Gravity Urine UA <=1.005 (1.000-1.035); Urobilinogen Urine UA 0.2 E.U./dL (0.2)
[2022-01-06 13:48] LABS: Amorphous Sediment Urine 1+; Bacteria Urine Moderate (10-30); Culture Indicated Urine Specimen Cultured; RBC Urine None Seen (0-5/HPF); Renal Epithelial Cells Urine 1-5/HPF (0-1/HPF); Squamous Epithelial Cell Urine 1-5 /HPF (0-5/HPF); WBC Urine 5-10/HPF (0-5/HPF)
--- NOTE | 2022-01-06 13:53 | OT.IP.EVAL ---
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 Mobility and Gait Pt uses a 4WW for limited household mobility and for trips to the doctor's office. She states she has been falling frequently. Activities of Daily Living and IADL's Pt has a ALEENA caregiver 4-5 hours per day during the week and one hour per day on weekends. Caregiver is assisting with bathing tasks. Per OT, pt states she was driving herself until recently . Prior Functional Level (Other details) Pt recently had a environmental monitoring specialist from [facility]. She is persistently bradycardic and is being considered for a pacemaker. Social History Household Members none Living Arrangements Apartment/Condo Number of Stairs To Enter/Railing? Pt lives in a third floor apartment with elevator access . Home Environment Standard Height Toilet,Tub/ Shower Home Equipment Bedside Commode,Tub Transfer Bench,Hand Held Shower,Lift Recliner,Grab Bars Near Toilet ,Grab Bars In Shower Additional Social History Comment Pt lives alone in [place]. She has a sister who lives in [place] and provides occasional assist. Pt's caregiver has been sick recently and unable to provide regular hours. M1 PT/OT-IP Prior Functional Status Start: 01/06/22 14:57 Freq: NEEDED Status: Active Protocol: Document 01/06/22 14:58 CGR (Rec: 01/06/22 15:13 CGR [id number]) Medical Review Prior Functional Status Medical History Reviewed Yes Communication Pt is able to make her needs known but with a great deal of confusion and extra time. Mobility and Gait Pt uses a 4WW for limited household mobility and for trips to the doctor's office. She states she has been falling frequently. Activities of Daily Living and IADL's Pt has a ALEENA caregiver 4-5 hours per day during the week and one hour per day on weekends. Caregiver is assisting with bathing tasks. Per OT, pt states she was driving herself until recently . Prior Functional Level (Other details) Pt recently had a environmental monitoring specialist from [facility]. She is persistently bradycardic and is being considered for a pacemaker. Social History Household Members none Living Arrangements Apartment/Condo Number of Stairs To Enter/Railing? Pt lives in a third floor apartment with elevator access . Home Environment Standard Height Toilet,Tub/ Shower Home Equipment Bedside Commode,Tub Transfer Bench,Hand Held Shower,Lift Recliner,Grab Bars Near Toilet ,Grab Bars In Shower Additional Social History Comment Pt lives alone in [place]. She has a sister who lives in [place] and provides occasional assist. Pt's caregiver has been sick recently and unable to provide regular hours. M2 OT-IP Current Condition Start: 01/06/22 14:57 Freq: Status: Active Protocol: Document 01/06/22 14:58 CGR (Rec: 01/06/22 15:13 CGR [id number]) Occupational Therapy Current Condition Current Condition Evaluation Date 01/06/22 Treatment Diagnosis weakness, GLF, R knee pain Diagnosis Onset Date 01/05/22 M3 OT- IP Subjective and Pain Start: 01/06/22 14:57 Freq: Status: Active Protocol: Document 01/06/22 14:58 CGR (Rec: 01/06/22 15:13 CGR [id number]) OT- Subjective Occupational Therapy Visit Type Type Initial Evaluation Visit Start Time 13:30 Visit Stop Time 13:53 Total Visit Minutes 23 Notes Nursing requesting assist with transfer back to bed. OT Pain Assessment Pain When Pain Assessed At Rest Pain Present Pain Present Pain Reported Location Generalized Intensity 6 Scale Used Numeric (0 - 10) Management Techniques Modification of Treatment,Re- positioning M4 OT- IP ADL's Start: 01/06/22 14:57 Freq: Status: Active Protocol: Document 01/06/22 14:58 CGR (Rec: 01/06/22 15:13 CGR [id number]) OT [id number] General Evaluation Self-Feeding Ability Standby Assistance Comments OT Self-Feeding Comments Pt is feeding self when OT entered initially. Pt was able to get chips to mouth inconsistently but did not accept assist for feeding. Upon return, some of pt's sandwich was consumed. OT ADL-Grooming Comments OT Grooming Comments Pt declined OT ADL-Oral Care Comments Oral Care Comments Pt declined OT ADL-Dressing General Eval Upper Body Dressing Ability Total Assistance Lower Body Dressing Ability Total Assistance Areas Needing Assistance Socks Comments OT Dressing Comments hospital gown doffing and donning and socks OT ADL-Toileting Comments OT Toileting Comments not performed OT ADL-Bathing Comments OT Bathing Comments not performed M5 OT- IP IADL's Start: 01/06/22 14:57 Freq: Status: Active Protocol: Document 01/06/22 14:58 CGR (Rec: 01/06/22 15:13 CGR [id number]) OT-Instrumental Activities of Daily Living Deficits IADL Deficits Identified Deficits Home Safety Awareness Awareness of Need for Assistance at Home Decreased Awareness Ability to Problem Solve Emergency Unable to Problem Solve Situations Medication Management Medication Management Comments concerns regarding pt's ability to perform Money Management Money Management Comments concerns regarding pt's ability to perform Meal Preparation Meal Preparation Comments concerns regarding pt's ability to perform Diabetologist Diabetologist Comments concerns regarding pt's ability to perform Driving Driving Comments concerns regarding pt's ability to perform M6 OT- IP Functional Cognition Start: 01/06/22 14:57 Freq: Status: Active Protocol: Document 01/06/22 14:58 CGR (Rec: 01/06/22 15:13 R [id number]) Cognitive Factors Limiting Selfcare Function Cognitive Ability Level of Alertness Alert Patient Orientation Name,Age,Birthday,Month,Year, Place,Situation Attention Span Ability Capable of Focused Attention, Capable of Sustained Attention Cognitive Comments Cognitive Assessment Comments Pt is oriented x2 but needs extra time for all verbal communication. OT- Vision and Hearing OT- Hearing Assessment OT- Hearing Assessment WFL OT- Vision Assessment Visual Acuity Glasses All The Time Visual Attentiveness Impaired Vision Assessment Comments Pt appeared too sleepy to participate in visual scanning . M7 OT- IP Mobility and Balance Start: 01/06/22 14:57 Freq: Status: Active Protocol: Document 01/06/22 14:58 CGR (Rec: 01/06/22 15:13 CGR [id number]) OT- Bed Mobility Assessment Rolling Type of Rolling Roll to Right,Roll to Left Level of Assistance Moderate Assistance OT-Transfer Assessment Transfers Transfer Ability Total Assistance Technique Transfer Technique Mechanical Lift Comments Mobility Comments sergio used to return pt to bed M8 OT- IP Objective Assessments Start: 01/06/22 14:57 Freq: Status: Active Protocol: Document 01/06/22 14:58 CGR (Rec: 01/06/22 15:13 CGR [id number]) OT Gross Range of Motion Upper Extremity Range of Motion Assessment Bilaterally Impaired ROM Impairments myoclonus to BUE with testing, muscle contractions in the arms were held ~2 seconds at a time. OT Strength Comments Strength Comments during muscle contraction pt is grossly 4-/5 OT- Coordination Assessment Upper Extremity Finger to Nose Test Within Functional Limits Finger Tapping Test Within Functional Limits Comments Coordination Comments with extra time OT-Muscle Tone Assessment Muscle Tone WNL Yes M9 OT- IP Assessment and Plan Start: 01/06/22 14:57 Freq: Status: Active Protocol: Document 01/06/22 14:58 CGR (Rec: 01/06/22 15:13 CGR [id number]) OT Summary Assessment and Plan Potential Rehabilitation Potential Good Analytic Complexity at Evaluation High Summary OT Impairments Pain,Strength,Balance, Functional Cognition, Functional Mobility,Self- Feeding,Grooming,Dressing, Toileting,Bathing,Toilet Transfers,Shower Transfers, Activity Tolerance Progress Towards Goals Slow Progress due to Medical Issues Assessment Summary Pt presents as a high complexity evaluation s/p admit for weakness, GLF and R knee pain. Pt was hoyered back to bed and was able to minimally participate in therapy on this date. Pt will need SNF upon discharge given pt's significantly weakened state. Pt will continue to benefit from OT services while hospitalized. Goals Self-Feeding Goal Independent Grooming Goal Independent Dressing Goal Independent Toileting Goal Independent Bathing Goal Independent Toilet Transfer Goal Independent Shower Transfer Goal Independent Days to Meet Goals 30 Frequency of Treatment Frequency Of Treatment Once a Day Treatment Plan OT Treatment Plan ADL Training,Functional Cognition Training,Functional Mobility,Patient/Family Education,Discharge Planning Other Treatment Recommendations and Next cog assessment, adls seated Treatment Focus Discharge Recommendations OT Discharge Recommendations SNF Rehab Transportation Needs at Discharge Wheelchair/Cabulance
[2022-01-06] MEDS: cefTRIAXone 1,000 MG in SODIUM CHLORIDE 0.9% 100 ML 200 MG IV (15:47)
--- NOTE | 2022-01-06 19:35 | P.PN_ITS ---
Subjective Subjective Date Patient Seen: 01/06/22 Interval history: continues to feel weak, no shortness of breath or chest pain. HR also low normal, occasional slow afib with also wenchebach block. Awaiting records from [facility] as she was apparently awaiting PPM placement but cannot confirm at this time. TSH also is 90 with low free T4. Exam Vital Signs (past 8 hours): - 01/06/22 12:00 01/06/22 16:00 Temperature 97.3 F L Pulse Rate 64 44 L Respiratory Rate 22 18 Blood Pressure 125/52 L 125/65 Pulse Oximetry 98 97 Oxygen Flow Rate 2 2 Fraction of Inspired Oxygen 28 SaO2/FiO2 Ratio 353 Oxygen Delivery Method Nasal Cannula Oxygen Flow Rate 2 Narrative Exam Narrative: General: Patient is a elderly pleasant mildly confused female in no distress at this time. HEENT: Normocephalic, atraumatic, extraocular muscles intact, oral pharynx is clear and mucous membranes are moist. Neck is supple and symmetric, trachea is midline, no adenopathy, no thyroid enlargement, nontender, no masses palpated. Negative for JVD Chest: Normal AP diameter and contour without kyphoscoliosis, no nasal flaring, retractions, tachypneic, mildly labored breathing. Lungs: Auscultation of all lung brantley are clear without adventitious sounds, wheezes, rhonchi, or rales. Cardio: Bradycardic irregular rate and rhythm without murmur, rubs, or gallops, no carotid bruit, no cardiac pulsations present. Abdomen: Soft nontender, negative for organomegaly, or masses. Bowel sounds are present in all 4 quadrants without guarding or rebound, no CVA tenderness. Musculoskeletal: Right knee has an abrasion at the mid lower patella area. Trace LE edema. no joint tenderness. Skin: Warm dry and intact. see right knee above. Neuro: Alert and orientated x3, sensation to touch intact, no gross deficits noted of cranial nerves. Psych: Patient has a well-kept appearance, appropriate affect, mildly confused, thought context mental status and judgment are appropriate for age 81. Objective Labs Result Diagrams: 01/06/22 07:12 01/06/22 07:12 Labs: Laboratory Results - last 24 hr 01/05/22 01/06/22 01/06/22 13:15 07:12 07:12 WBC 12.3 H RBC 3.38 L Hgb 10.3 L Hct 29.9 L MCV 88.5 MCH 30.5 MCHC 34.5 RDW 15.6 H Plt Count 258 Neut % (Auto) 86.7 H Lymph % (Auto) 3.5 L [place] % (Auto) 8.2 Eos % (Auto) 1.3 L Baso % (Auto) 0.3 Neut # (Auto) 35346 H Lymph # (Auto) 400 L [place] # (Auto) 1000 H Eos # (Auto) 200 Baso # (Auto) 0 Sodium 138 Potassium 3.6 Chloride 99 Carbon Dioxide 28 BUN 27 H Creatinine 1.63 H Estimated GFR 32 L BUN/Creatinine Ratio 16.6 Glucose 125 H Calcium 9.3 Free T4 1.67 Urine Color Urine Appearance Urine pH Ur Specific [place] Urine Protein Urine Glucose (UA) Urine Ketones Urine Occult Blood Urine Nitrate Urine Bilirubin Urine Urobilinogen Ur Leukocyte Esterase Urine RBC Urine WBC Ur Squamous Epith Cells Ur Renal Epithelial Cell Amorphous Sediment Urine Bacteria Ur Culture Indicated? 01/06/22 13:32 WBC RBC Hgb Hct MCV MCH MCHC RDW Plt Count Neut % (Auto) Lymph % (Auto) [place] % (Auto) Eos % (Auto) Baso % (Auto) Neut # (Auto) Lymph # (Auto) [place] # (Auto) Eos # (Auto) Baso # (Auto) Sodium Potassium Chloride Carbon Dioxide BUN Creatinine Estimated GFR BUN/Creatinine Ratio Glucose Calcium Free T4 Urine Color Yellow Urine Appearance Sl cloudy Urine pH 7.0 Ur Specific [place] <=1.005 Urine Protein Negative Urine Glucose (UA) Negative Urine Ketones Negative Urine Occult Blood Negative Urine Nitrate Negative Urine Bilirubin Negative Urine Urobilinogen 0.2 Ur Leukocyte Esterase 2+ H Urine RBC None seen Urine WBC 5-10/hpf H Ur Squamous Epith Cells 1-5 /hpf Ur Renal Epithelial Cell 1-5/hpf H Amorphous Sediment 1+ Urine Bacteria Moderate (10-30) H Ur Culture Indicated? 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 On home O2 Surgical History (Updated 01/06/22 @ 04:41 by DENYS Wakefield) History of coronary artery bypass graft x 6 History of partial thyroidectomy Status post surgery (09/19/13) Family History Mother Congestive heart failure Father Cancer Social History household members: none Smoking Status: Never smoker alcohol intake: never Assessment & Plan Assessment & Plan narrative: Darlin Ward is a 81-year-old female with a medical history of diabetes, atrial fibrillation, chronic bradycardia, hypothyroidism with a history of partial thyroidectomy, CABG x5, heart stents on eliquis, whom is on home 02 for unknown reason, who presented to the emergency room with complaint of weakness for about a month progressively getting worse, resulting in multiple ground level falls causing right knee pain, also with noted intermittent bradycardia. 1. Weakness(deconditioning) chronic, resulting in ground level fall, right knee pain, acute, present on admission -Recommended for SNF, unclear about acute deconditioning cause if related to bradycardia, encephalopathy from UTI, or other causes. -right knee CT demonstrated only mild soft tissues swelling seen anteriorly and medially. 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 2. Atrial fibrillation, on chronic anticoagulation, intermittent bradycardia, acute on chronic, present on admission -patient's Ship'S Cook is Dr. Rodgers, pending records re: PPM placement. -patient has bilateral lower extremity edema, and BNP of 6760-likely has congestive heart failure- Echo for confirmation. Lasix 40mg IV BID -monitor on tele -ortho stats Q4 Hrs while awake -Hold metoprolol, amolodipine, isosorbide mononitrate- due to Bradycardia. -continue Eliquis 3. hx partial thyroidectomy, acute on chronic, present on admission -TSH 0.07, normal free t4. Outpatient follow up recommended. 4. Diabetes type 2, insulin dependent, chronic, present on admission -patient presented with a blood sugar of 71, and A1c of 6.9 -continue to monitor blood sugars a.c. HS 5. BILLY, verses CKD, acute, present on admission -suspect that this is actually just CKD, but prior baseline based on prior notes was 1.13 from 04/2020. Admitted previously at [facility] with Cr. of 3. -BUN 33, creatinine 1.59, glucose 71, GFR 33. Previously -will monitor renal function. -no signs of infectious process 6. Anemia, mild, acute, present on admission -again suspect this is possible anemia -RBC 3.31, H&H 10.3/29.6 -will monitor H&H, and for signs and symptoms of bleeding 7. Cognitive impairment, with acute metabolic encephalopathy, present on admission - pending PT/OT. UA was positive so started on ceftriaxone, may represent an acu te encephalopathy from infection. 8. Acute cystitis - continue ceftriaxone, follow up cultures. Code status:DNR Surrogate decision maker: Monet Perdomo Sister COVID PCR:Negative DVT/VTE prophylaxis:Pt on Eliquis & SCD's Disposition: possible SNF, timing unclear pending above evaluation Time Spent With Patient Critical Care time: I spent a total of [] minutes of critical care time on this patient's care today; this time is exclusive of procedural time. Quality VTE Deep Vein Thrombosis/Pulmonary Embolism Present on Admission: No
[2022-01-06] MEDS: ATORVASTATIN 20 MG TABLET PO (21:57)
[2022-01-06] MEDS: ACETAMINOPHEN 325 MG TABLET 650 MG PO (22:10)
[2022-01-06] MEDS: INSULIN LISPRO 100 UNIT/ML 3ML VIAL SUBCUT (23:19)
[2022-01-07 01:55] VITALS: BP 96/62; PULSE 56; RESP 16; TEMP 37.3; O2SAT 98
[2022-01-07 06:10] VITALS: BP 142/49; PULSE 69; RESP 16; TEMP 36.4; O2SAT 95
[2022-01-07 07:41] LABS: Add Manual Diff / Slide Review NO; Basophils Absolute Auto 0 /uL (0-100); Basophils Percent Auto 0.3 % (0-2); Eosinophils Absolute Auto 300 /uL (0-450); Hematocrit 29.7 % (36-46); Hemoglobin 10.2 g/dL (12.0-16.0); Lymphocytes Absolute Auto 600 /uL (1100-4500); Lymphocytes Percent Auto 4.7 % (25-40); Mean Corpuscular HGB Conc 34.3 % (30-36); Mean Corpuscular Hemoglobin 30.5 PG (26-34); Mean Corpuscular Volume 88.9 fL (80-100); Monocytes Absolute Auto 900 /uL (0-900); Monocytes Percent Auto 6.7 % (3-14); Neutrophils Absolute Auto 11800 /uL (1500-7000); Neutrophils Percent Auto 86.3 % (50-75); Platelet Count 253 X10^3/uL (150-400); Red Blood Cell Count 3.35 X10^6/uL (4.0-5.2); Red Cell Distribution Width 15.6 % (11.6-14.8); White Blood Cell Count 13.7 X10^3/uL (4.5-11.0)
[2022-01-07 07:51] LABS: BUN Creatinine Ratio 17.8 (6-22); Blood Urea Nitrogen 33 mg/dL (7-17); Calcium 8.9 mg/dL (8.4-10.2); Carbon Dioxide 28 mmol/L (22-32); Chloride 98 mmol/L (98-107); Estimated Glomerular Filt Rate 27 mL/min (>60); Glucose 201 mg/dL (80-110); HEMOLYSIS < 15 (0-50); Potassium 3.5 mmol/L (3.4-5.1); Sodium 137 mmol/L (137-145)
[2022-01-07] MEDS: INSULIN LISPRO 100 UNIT/ML 3ML VIAL SUBCUT ×4 (08:24→20:27)
[2022-01-07] MEDS: CLOPIDOGREL 75 MG TABLET PO (09:46)
[2022-01-07] MEDS: PREGABALIN 50 MG CAPSULE PO ×3 (09:46→20:14)
[2022-01-07] MEDS: APIXABAN 5 MG TABLET 2.5 MG PO ×2 (09:47→20:14)
[2022-01-07] MEDS: FUROSEMIDE 40 MG/4 ML VIAL IV (09:47)
[2022-01-07] MEDS: CHLORTHALIDONE 25 MG TABLET PO (09:47)
[2022-01-07 10:00] VITALS: BP 131/48; PULSE 76; RESP 18; TEMP 36.2; O2SAT 91
--- NOTE | 2022-01-07 12:15 | PT-IP ANOTE ---
Attempted to see pt for PT, but pt refused due to high level of fatigue c/o nobody will just let me sleep. Will check back tomorrow.
[2022-01-07 15:00] VITALS: BP 147/47; PULSE 74; RESP 18; TEMP 36.2; O2SAT 95
[2022-01-07] MEDS: cefTRIAXone 1,000 MG in SODIUM CHLORIDE 0.9% 100 ML 200 MG IV (15:09)
--- NOTE | 2022-01-07 18:56 | PM.PN.1 ---
Subjective Subjective Date Patient Seen: 01/07/22 Interval history: HR generally improved, continues to feel weak. Accepted for transfer to [facility] but no beds for PPM placement. Tele with intermittent 3-4 second pauses, predominantly afib though improved (increased) rate today. Exam Vital Signs (past 8 hours): - 01/07/22 15:00 Temperature 97.2 F L Pulse Rate 74 Respiratory Rate 18 Blood Pressure 147/47 H Pulse Oximetry 95 Oxygen Flow Rate 0 Fraction of Inspired Oxygen 28 SaO2/FiO2 Ratio 350 Oxygen Delivery Method Nasal Cannula Oxygen Flow Rate 0 Narrative Exam Narrative: General: Patient is a elderly pleasant mildly confused female in no distress at this time. HEENT: Normocephalic, atraumatic, extraocular muscles intact, oral pharynx is clear and mucous membranes are moist. Neck is supple and symmetric, trachea is midline, no adenopathy, no thyroid enlargement, nontender, no masses palpated. Negative for JVD Chest: Normal AP diameter and contour without kyphoscoliosis, no nasal flaring, retractions, tachypneic, mildly labored breathing. Lungs: Auscultation of all lung brantley are clear without adventitious sounds, wheezes, rhonchi, or rales. Cardio: Bradycardic irregular rate and rhythm without murmur, rubs, or gallops, no carotid bruit, no cardiac pulsations present. Abdomen: Soft nontender, negative for organomegaly, or masses. Bowel sounds are present in all 4 quadrants without guarding or rebound, no CVA tenderness. Musculoskeletal: Right knee has an abrasion at the mid lower patella area. Trace LE edema. no joint tenderness. Skin: Warm dry and intact. see right knee above. Neuro: Alert and orientated x3, sensation to touch intact, no gross deficits noted of cranial nerves. Psych: Patient has a well-kept appearance, appropriate affect, mildly confused, thought context mental status and judgment are appropriate for age 81. Objective Labs Result Diagrams: 01/07/22 07:10 01/07/22 07:10 Labs: Laboratory Results - last 24 hr 01/07/22 01/07/22 07:10 07:10 WBC 13.7 H RBC 3.35 L Hgb 10.2 L Hct 29.7 L MCV 88.9 MCH 30.5 MCHC 34.3 RDW 15.6 H Plt Count 253 Neut % (Auto) 86.3 H Lymph % (Auto) 4.7 L [place] % (Auto) 6.7 Eos % (Auto) 2.0 Baso % (Auto) 0.3 Neut # (Auto) 89452 H Lymph # (Auto) 600 L [place] # (Auto) 900 Eos # (Auto) 300 Baso # (Auto) 0 Sodium 137 Potassium 3.5 Chloride 98 Carbon Dioxide 28 BUN 33 H Creatinine 1.85 H Estimated GFR 27 L BUN/Creatinine Ratio 17.8 Glucose 201 H Calcium 8.9 PFSH Medical History (Updated 01/06/22 @ 04:53 by DENYS Wakefield) Bradycardia Chronic anticoagulation Hypothyroidism associated with surgical procedure Insulin dependent diabetes mellitus On home O2 Surgical History (Updated 01/06/22 @ 04:41 by DENYS Wakefield) History of coronary artery bypass graft x 6 History of partial thyroidectomy Status post surgery (09/19/13) Family History Mother Congestive heart failure Father Cancer Social History household members: none Smoking Status: Never smoker alcohol intake: never Assessment & Plan Assessment & Plan narrative: Darlin Ward is a 81-year-old female with a medical history of diabetes, atrial fibrillation, chronic bradycardia, hypothyroidism with a history of partial thyroidectomy, CABG x5, heart stents on eliquis, whom is on home 02 for unknown reason, who presented to the emergency room with complaint of weakness for about a month progressively getting worse, resulting in multiple ground level falls causing right knee pain, also with noted intermittent bradycardia. 1. Weakness(deconditioning) chronic, resulting in ground level fall, right knee pain, acute, present on admission -Recommended for SNF, unclear about acute deconditioning cause if related to bradycardia, encephalopathy from UTI, or other causes. -right knee CT demonstrated only mild soft tissues swelling seen anteriorly and medially. -PT/OT evaluation -possible bradycardia contributing, slightly improved though beta sohail held since admission and patient has 3-4 second pauses, predominantly slow afib with intermittent wenchebach block. 2. Atrial fibrillation, on chronic anticoagulation, intermittent bradycardia, acute on chronic, present on admission -patient's Spa Director/Finance is Dr. Rodgers, pending records re: PPM placement. -patient has bilateral lower extremity edema, and BNP of 6760-likely has congestive heart failure- Echo for confirmation. Lasix 40mg IV BID -monitor on tele -ortho stats Q4 Hrs while awake -Hold metoprolol, amolodipine, isosorbide mononitrate- due to Bradycardia. -continue Eliquis 3. hx partial thyroidectomy, acute on chronic, present on admission -TSH 0.07, normal free t4. Outpatient follow up recommended. 4. Diabetes type 2, insulin dependent, chronic, present on admission -patient presented with a blood sugar of 71, and A1c of 6.9 -continue to monitor blood sugars a.c. HS 5. BILLY, acute, present on admission -suspect that this is actually just CKD, but prior baseline based on prior notes was 1.13 from 04/2020. Admitted previously at [facility] with Cr. of 3. -BUN 33, creatinine 1.59, glucose 71, GFR 33. Previously -will monitor renal function, continues to slightly worsen today. -no signs of infectious process 6. Anemia, mild, acute, present on admission -again suspect this is possible anemia -RBC 3.31, H&H 10.3/29.6 -will monitor H&H, and for signs and symptoms of bleeding 7. Cognitive impairment, with acute metabolic encephalopathy, present on admission - continue PT/OT. UA was positive so started on ceftriaxone, may represent an acute encephalopathy from infection. 8. Acute cystitis - continue ceftriaxone, follow up cultures. Code status:DNR Surrogate decision maker: Monet Perdomo Sister COVID PCR:Negative DVT/VTE prophylaxis:Pt on Eliquis & SCD's Disposition: possible SNF, timing unclear pending above evaluation Time Spent With Patient Critical Care time: I spent a total of [] minutes of critical care time on this patient's care today; this time is exclusive of procedural time. Quality VTE Deep Vein Thrombosis/Pulmonary Embolism Present on Admission: No
[2022-01-07] MEDS: ATORVASTATIN 20 MG TABLET PO (20:14)
[2022-01-07] MEDS: SENNOSIDES 8.6 MG TABLET PO (20:18)
[2022-01-07 20:36] VITALS: TEMP 37.8
[2022-01-07] MEDS: ACETAMINOPHEN 325 MG TABLET 650 MG PO (20:36)
[2022-01-07 20:40] VITALS: BP 128/54; PULSE 89; RESP 18; TEMP 37.8; O2SAT 94
[2022-01-08 03:30] VITALS: BP 132/50; PULSE 88; RESP 18; TEMP 36; O2SAT 96
[2022-01-08] MEDS: ACETAMINOPHEN 325 MG TABLET 650 MG PO ×2 (04:26→13:13)
[2022-01-08 06:18] LABS: Add Manual Diff / Slide Review NO; Basophils Absolute Auto 100 /uL (0-100); Basophils Percent Auto 0.4 % (0-2); Eosinophils Absolute Auto 100 /uL (0-450); Eosinophils Percent Auto 0.6 % (2-4); Hematocrit 27.3 % (36-46); Hemoglobin 9.4 g/dL (12.0-16.0); Lymphocytes Absolute Auto 500 /uL (1100-4500); Mean Corpuscular HGB Conc 34.5 % (30-36); Mean Corpuscular Hemoglobin 30.5 PG (26-34); Mean Corpuscular Volume 88.4 fL (80-100); Monocytes Absolute Auto 900 /uL (0-900); Monocytes Percent Auto 5.2 % (3-14); Neutrophils Absolute Auto 15700 /uL (1500-7000); Neutrophils Percent Auto 90.8 % (50-75); Platelet Count 240 X10^3/uL (150-400); Red Blood Cell Count 3.09 X10^6/uL (4.0-5.2); Red Cell Distribution Width 15.6 % (11.6-14.8); White Blood Cell Count 17.3 X10^3/uL (4.5-11.0)
[2022-01-08 06:21] LABS: BUN Creatinine Ratio 18.9 (6-22); Blood Urea Nitrogen 41 mg/dL (7-17); Calcium 8.5 mg/dL (8.4-10.2); Carbon Dioxide 25 mmol/L (22-32); Chloride 97 mmol/L (98-107); Estimated Glomerular Filt Rate 23 mL/min (>60); Glucose 216 mg/dL (80-110); HEMOLYSIS < 15 (0-50); Potassium 3.6 mmol/L (3.4-5.1); Sodium 135 mmol/L (137-145)
--- NOTE | 2022-01-08 06:27 | PC.NURSE ---
End of shift note. Care of patient from [id number]. AAOX3, c/o of buttocks pain. Removed soiled foam dressings from buttocks. Rt buttocks cheek has a skin tear. Applied barrier cream. Patient is incontinent urine. Placed a clear purewick with adult diaper. Gave tylenol for pain. Plan is to transfer to a higher level care for possible cardiac intervention. Patient has been atrial fibrillation 80s.
--- NOTE | 2022-01-08 06:31 | PC.NURSE ---
End of shift note. Care of patient from [id number]. Patient awake, oriented to self, place and situation. Denies pain. Forgets to use call light, gets OOB without assist, bed alarm alerts. is somewhat steady on feet. Voiding via urinal. Telemetry has been NSR 60s.
[2022-01-08 07:52] VITALS: BP 128/46; PULSE 82; RESP 17; TEMP 36.7; O2SAT 92
--- NOTE | 2022-01-08 08:30 | PC.RNWOUND ---
Patient resting in bed, purewick is gently removed and patient turns to left side with assist and is cleansed up of incontinence of bowel and bladder. Right buttock stage 2 pressure injury (partial-thickness wound) measures 2 x 1 x 0.05cm today, no exudate noted at this time although there is no dressing present. Barrier cream present on perineum/gluteal cleft. Sacral dressing is placed for protection- covers wound- skin prep used for added adherence, Purewick gently replaced. Patient is repositioned to left side with 30 degree tilt using pillows, heels floated with pillows, tolerates cares well, reports comfort with this position, warm blanket given.
[2022-01-08] MEDS: INSULIN LISPRO 100 UNIT/ML 3ML VIAL SUBCUT ×2 (08:50→12:24)
[2022-01-08] MEDS: CLOPIDOGREL 75 MG TABLET PO (08:58)
[2022-01-08] MEDS: PREGABALIN 50 MG CAPSULE PO ×2 (08:58→14:20)
[2022-01-08] MEDS: APIXABAN 5 MG TABLET 2.5 MG PO (08:58)
[2022-01-08] MEDS: CHLORTHALIDONE 25 MG TABLET PO (08:59)
[2022-01-08 11:00] VITALS: BP 121/46; PULSE 80; RESP 16; TEMP 36.1; O2SAT 91
--- NOTE | 2022-01-08 11:00 | PT-IP ANOTE ---
Attempted to see pt at 11 AM and pt refused therapy due to pain and fatigue. Per rounds, pt still pending transfer for pacemaker.
--- NOTE | 2022-01-08 11:01 | OT.IPNOTE ---
Attempted to work with pt for OT and pt states too tired at this time. Pt states would rather have her pacemaker done first before doing therapy. Pt awaiting a bed for higher level of care at this time. Hold OT today.
--- NOTE | 2022-01-08 12:49 | CM.DPC ---
DCP Cont: Per MD, pt is awaiting transfer to a higher level of care for a pacemaker placement. If pt is unable to transfer or improves, pt could potentially discharge to SNF. [facility] has accepted the pt and is ready for pt if plans were to change. DCP to continue to follow. Geni Sanders RN/DCP
[2022-01-08] MEDS: cefTRIAXone 1,000 MG in SODIUM CHLORIDE 0.9% 100 ML 200 MG IV (14:20)
--- NOTE | 2022-01-08 14:28 | P.DS_ITS ---
History of Present Illness History of Present Illness Date Patient Seen: 01/08/22 Chief complaint: weakness Narrative: Per Jami Vines, [facility]-: Darlin Ward is a 81-year-old bed bound female with a medical history of diabetes, atrial fibrillation, chronic bradycardia, hypothyroidism with a history of partial thyroidectomy, CABG x5, heart stents on eliquis, whom is on home 02 for unknown reason, who presented to the emergency room with complaint of weakness for about a month progressively getting worse.? The patient reports repeated falls, the last being yesterday.? GLF impacting her right knee.? The patient denies any head injury or loss of consciousness from these falls. Admits to having heart concerns and has been seen car customizer Dr. Bonilla reviewed and has been in discussions with Dr. Rodgers to have a pacemaker inserted.? States her main provider is Dr. Acuña located in [place].? Patient is a poor historian and information may not be accurate. Patient denies chest pain shortness of breath, abd pain, fever, body aches, chills, nausea, vomiting, constipation, diarrhea, urinary issues, cough or upper respiratory symptoms, or recent illness, no recent changes in medication.? Also Denies any other concerns. Patient was hemodynamically stable upon admit temp 97.8?, BP 136/58, HR 78, R 18, O2 saturation 100% on 4 L nasal cannula, patient is on oxygen at home. Patient demonstrates mild anemia though we have no labs for comparison. 10.3/29.6, WBC normal noted mild left shift neutrophils 8400 mono 1000. Patient also demonstrates a versus possible CKD which is like BUN 33, creatinine 1.59, glucose of 71, GFR 33, A1c 6.9. BNP 6060, initial troponin 0.017, TSH is low 0.07. Chest x-ray demonstrated cardiomegaly a with minimal interstitial prominence and a small left-sided pleural effusion. Patient's right knee CT demonstrated mi soft tissue swelling seen anteriorly and medially. EKG demonstrated atrial fibrillation with a rate of 81 with nonspecific intraventricular block most likely right bundle-branch block which is consistent with previous EKG in chart which I personally reviewed. Patient admitted for weakness resulting in a ground level fall, right knee pain, bradycardia in AFib. Discharge Providers Provider Date of admission: 01/05/22 18:09 Discharge Date: 01/08/22 Primary care physician: KELBY Mccabe Consults: 01/05/22 17:59 Consult to Occupational Therapy Evaluate & Treat Comment: Physician Instructions: Evaluate and treat Consult to Physical Therapy Evaluate & Treat Comment: Physician Instructions: Evaluate and Treat 01/05/22 18:10 Consult to Dietitian, Adult Routine Comment: Reason For Exam: poor nutrition, hypoglycemia on admission 01/05/22 19:29 Consult to Dietitian, Adult Routine Comment: Reason For Exam: decreased mobility, wounds 01/05/22 19:30 Consult to Inpatient Wound Care Nurse Routine Comment: Reason for consultation: multiple wounds, sacral dsg placed. Pictures in notes 01/05/22 19:31 Consult to Dietitian, Adult Routine Comment: Reason For Exam: already ordered Discharge provider: Nii Mendoza DO Summary Hospital Course Discharge Diagnosis: Please see hospital course by problem list noted below Hospital Course: Darlin Ward is a 81-year-old female with a medical history of diabetes, atrial fibrillation, chronic bradycardia, hypothyroidism with a history of partial thyroidectomy, CABG x5, heart stents on eliquis, whom is on home 02 for unknown reason,? who presented to the emergency room with complaint of weakness for about a month progressively getting worse, resulting in multiple ground level falls causing right knee pain, also with noted intermittent bradycardia which was found to be sypmtomatic. Transferred to [facility] for PPM placement. 1. Weakness(deconditioning) acute on chronic, resulting in ground level fall, right knee pain, acute, present on admission -Recommended for SNF, unclear about acute deconditioning cause if related to bradycardia, encephalopathy from UTI, or other causes. -right knee CT demonstrated only mild soft tissues swelling seen anteriorly and medially. -PT/OT evaluation recommended for SNT -suspect bradycardia to be contributing to her acute weakness. Plan for transfer to [facility] in [place] for PPM evaluation, further discussed below 2. Atrial fibrillation with acute on chronic diastolic heart failure, on chronic anticoagulation, intermittent symptomatic bradycardia, acute on chronic, present on admission -patient's Automation And Controls Supervisor is Dr. Rodgers, was previously recommended for PPM placement for unknown reason. Telemetry here showed 3-4 second pauses, worsened with ambulation and beta sohail therapy. This has improved with rest and beta sohail cessation, but continues to have intermittent bradycardia. Predominantly she is in afib, intermittent wenchebach block noted as well, in addition to pauses noted above. -patient had bilateral lower extremity edema, and BNP of 6760-likely has congestive heart failure on admission- echo showed normal EF while here. Diuresed with 40 IV lasix daily for 3 days, but worsening BILLY today with Cr. to 2.14, discontinued diuretic therapy. -Hold metoprolol, amolodipine, isosorbide mononitrate due to Bradycardia. -continued Eliquis while here. 3. hx partial thyroidectomy, acute on chronic, present on admission -TSH 0.07, normal free t4. Outpatient follow up recommended for repeat studies. 4. Diabetes type 2, insulin dependent, chronic, present on admission -patient presented with a blood sugar of 71, and A1c of 6.9 -patient had normal blood glucose here, monitored ACHS. 5. BILLY, verses CKD, acute, present on admission -creatinine has slowly trended up with diuresis here. Held diuresis today as noted above. Cr 1.59 on admit up to 2.17 at time of transfer. Baseline had appeared to be around 1.1 per prior lab results. -no signs of infectious process 6. Anemia, mild, acute, present on admission -RBC 3.31, H&H 10.3/29.6. Stable during admission 7. Cognitive impairment, with acute metabolic encephalopathy, present on admission - continue PT/OT after PPM. UA was positive so started on ceftriaxone for 3 days (received 1/3 doses here before transfer), may represent an acute encephalopathy from infection. 8. Acute cystitis ?- continue ceftriaxone, cultures with GNB at time of discharge. Code: DNR Dispo: Transfer to [facility] in [place] for PPM evaluation/placement. Case was discussed with post tronic machine operator car customizer and accepted for transfer by hospitalist. Time Spent with Patient Time spent: Greater than 30 minutes Exam Vital Signs (past 8 hours): - 01/08/22 07:52 01/08/22 11:00 Temperature 98.0 F 97.0 F L Pulse Rate 82 80 Respiratory Rate 17 16 Blood Pressure 128/46 L 121/46 L Pulse Oximetry 92 91 Oxygen Flow Rate 0 0 Fraction of Inspired Oxygen 28 SaO2/FiO2 Ratio 350 Oxygen Delivery Method Room Air Oxygen Flow Rate 0 Narrative Exam Narrative: General: Patient is a elderly pleasant mildly confused female in no distress at this time. HEENT: Normocephalic, atraumatic, extraocular muscles intact, oral pharynx is clear and mucous membranes are moist. Neck is supple and symmetric, trachea is midline, no adenopathy, no thyroid enlargement, nontender, no masses palpated. Negative for JVD Chest: Normal AP diameter and contour without kyphoscoliosis, no nasal flaring, retractions, tachypneic, mildly labored breathing. Lungs: Auscultation of all lung brantley are clear without adventitious sounds, wheezes, rhonchi, or rales. Cardio: irregularly irregular rhythm, normal rate today without murmur, rubs, or gallops, no carotid bruit, no cardiac pulsations present. Abdomen: Soft nontender, negative for organomegaly, or masses. Bowel sounds are present in all 4 quadrants without guarding or rebound, no CVA tenderness. Musculoskeletal: Right knee has an abrasion at the mid lower patella area. Trace LE edema. no joint tenderness. Skin: Warm dry and intact. see right knee above. Neuro: Alert and orientated x3, sensation to touch intact, no gross deficits noted of cranial nerves. Psych: Patient has a well-kept appearance, appropriate affect, mildly confused, thought context mental status and judgment are appropriate for age 81. Objective Labs Result Diagrams: 01/08/22 05:43 01/08/22 05:43 Labs: Laboratory Results - last 24 hr 01/08/22 01/08/22 05:43 05:43 WBC 17.3 H RBC 3.09 L Hgb 9.4 L Hct 27.3 L MCV 88.4 MCH 30.5 MCHC 34.5 RDW 15.6 H Plt Count 240 Neut % (Auto) 90.8 H Lymph % (Auto) 3.0 L Lyon % (Auto) 5.2 Eos % (Auto) 0.6 L Baso % (Auto) 0.4 Neut # (Auto) 77011 H Lymph # (Auto) 500 L Lyon # (Auto) 900 Eos # (Auto) 100 Baso # (Auto) 100 Sodium 135 L Potassium 3.6 Chloride 97 L Carbon Dioxide 25 BUN 41 H Creatinine 2.17 H Estimated GFR 23 L BUN/Creatinine Ratio 18.9 Glucose 216 H Calcium 8.5 PFSH Medical History (Updated 01/06/22 @ 04:53 by DENYS Wakefield) Bradycardia Chronic anticoagulation Hypothyroidism associated with surgical procedure Insulin dependent diabetes mellitus On home O2 Surgical History (Updated 01/06/22 @ 04:41 by DENYS Wakefield) History of coronary artery bypass graft x 6 History of partial thyroidectomy Status post surgery (09/19/13) Family History Mother Congestive heart failure Father Cancer Social History household members: none Smoking Status: Never smoker alcohol intake: never Discharge Plan Discharge Plan Patient Disposition: [facility] Provider Discharge Comment: Please see discharge summary. Discharge Health Status Multidrug resistant organism: No MDRO Precautions: [place] Diet/Activity/Treatments Diet: Diet as Tolerated Liquid consistency: Normal/Thin Food texture: Regular Activity: As tolerated Visit Report/Discharge Packet Instructions: DI for Atrial Fibrillation, DI for Muscle Weakness Discharge Data Primary Care Provider: Conchita Norman Attending Provider: Imer Cheek Quality VTE Deep Vein Thrombosis/Pulmonary Embolism Present on Admission: No
== END 2022-01-08 15:13 | disposition short-term general hospital (02) ==
LOC: ED 16:21 → AC 18:11
PROVIDERS: Admitting Provider Student in an Organized Health Care Education/Training Program; Emergency Provider Physician Assistant; Family Provider Physician Assistant Medical; PCP Nurse Practitioner Family; Referring Provider Physician Assistant; Visit Provider Student in an Organized Health Care Education/Training Program
DX: R53.1 Weakness (principal); R00.1 Bradycardia, unspecified; I48.91 Unspecified atrial fibrillation; I50.33 Acute on chronic diastolic (congestive) heart failure; G93.41 Metabolic encephalopathy; E11.9 Type 2 diabetes mellitus without complications; N30.00 Acute cystitis without hematuria; B96.89 Other specified bacterial agents as the cause of diseases classified elsewhere; D64.9 Anemia, unspecified; M25.561 Pain in right knee; W18.30XA Fall on same level, unspecified, initial encounter; G31.84 Mild cognitive impairment of uncertain or unknown etiology; E89.0 Postprocedural hypothyroidism; Z79.84 Long term (current) use of oral hypoglycemic drugs; Z79.4 Long term (current) use of insulin; Z99.81 Dependence on supplemental oxygen; Z79.01 Long term (current) use of anticoagulants; Z66 Do not resuscitate; Z20.822 Contact with and (suspected) exposure to COVID-19
CPT/HCPCS: 36415; 71045; 73560; 73700; 80048; 80053; 81001; 82550; 82962; 83036; 83735; 83880; 84439; 84443; 84484; 85025; 87086; 87635; 93005; 93306; 94760; 96365; 96366; 96372; 96375; 96376; 97162; 97167; 97530; 99284; C9803; G0378; J0696; J1644; J1815; J1940